=== PATIENT | male | born 1965 | race Caucasian/White ===

== ENCOUNTER → 2020-02-21 10:00 | Outpatient (BNVA) | payer MEDICARE, SELFPAY | PROVIDERS: Family Provider Family Medicine; PCP Family Medicine | DX: D89.813 Graft-versus-host disease, unspecified (principal) | CPT/HCPCS: 80053; 83615; 85025; 87496 ==

== ENCOUNTER → 2020-05-16 09:17 | Outpatient (BNVA) | payer MEDICARE, SELFPAY | PROVIDERS: Family Provider Family Medicine; PCP Family Medicine; Visit Provider Nurse Practitioner Family | DX: C92.01 Acute myeloblastic leukemia, in remission (principal); R50.9 Fever, unspecified | CPT/HCPCS: 85025; 87635 ==

== ENCOUNTER 2020-05-17 13:19 | Emergency (ER) | payer MEDICARE, SELFPAY ==
[2020-05-17 13:24] VITALS: BP 116/63; PULSE 93; RESP 12; TEMP 36.9; O2SAT 97; BMI 25.0
--- NOTE | 2020-05-17 13:47 | XRR_ITS ---
PROCEDURE INFORMATION: Exam: XR Chest, 1 View Exam date and time: 05/17/2020 2:03 PM Age: 54 years old Clinical indication: Dyspnea; Patient HX: Covid precautions TECHNIQUE: Imaging protocol: XR of the chest Views: 1 view. COMPARISON: CR Chest 2 views* [id number] 04/15/2016 10:04 PM FINDINGS: Lungs: Unremarkable. No consolidation. Pleural space: Unremarkable. No pleural effusion. No pneumothorax. Heart/Mediastinum: Unremarkable. No cardiomegaly. Bones/joints: No acute findings. XR/XR chest 1V portable [id number] IMPRESSION: No acute findings.
[2020-05-17 13:51] VITALS: O2SAT 97
[2020-05-17 14:02] LABS: Basophils % 0.4 %; Hematocrit 42.9 % (42.0-52.0); Hemoglobin 14.2 g/dL (11.7-16.6); Lymphocytes # 0.7 10^3/uL (0.8-4.8); Lymphocytes % 13.2 %; Mean Corpuscular HGB Conc 33.1 g/dL (30.0-36.0); Mean Corpuscular Hemoglobin 31.2 pg (28.0-34.0); Mean Corpuscular Volume 94.3 fL (80-94); Mean Platelet Volume 10.8 fL (7.4-10.4); Monocytes # 0.7 10^3/uL (0.2-0.9); Monocytes % 13.4 %; Neutrophils # 3.53 10^3/uL (1.8-7.7); Neutrophils % 67.3 %; Nucleated Red Blood Cells % 0 %; Platelet Count 119 10^3/cmm (130-400); Red Blood Count 4.55 10^6/uL (4.1-5.3); Red Cell Distribution Width 14.3 % (12.1-15.1); White Blood Count 5.2 10^3/uL (4.0-10.0)
[2020-05-17 14:23] LABS: Fibrinogen 618 mg/dL (174-498)
--- NOTE | 2020-05-17 14:24 | W.ED.FEVER ---
HPI - Fever General: Chief Complaint: Fever Stated Complaint: FEVER/NOT FEELING GOOD Time Seen by Provider: 05/17/20 13:33 History of Present Illness: HPI Narrative: 54-year-old male comes in complaining of a fever is temps most part of been around 100 bit today he had a temp of 102.2. Started 2 to 3 days ago he was seen by his primary care doctor yesterday and check for Kovic. 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 He denies cough or dyspnea but he has had myalgias and headache. No coronary artery disease. He is in no nausea vomiting or diarrhea no dysuria urgency or frequency no abdominal pain. Has not been any chest pain at all. He denies any hematemesis melena or coffee-ground emesis or hematochezia. 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 elicited complaint: fever Pertinent past history: immunosuppression (Immunosuppressants due to previous bone marrow transplant) Onset (ago): day(s) Measured temperature: 102.2 F Context: on immunosuppressant(s) Exacerbating factors: nothing Relieving factors: acetaminophen and ibuprofen Associated symptoms: Reports chills and myalgias; Deny abdominal pain, flank pain, chest pain, confusion, cough, diarrhea, dysuria, extremity pain, headache(s), nasal congestion, nausea, night sweats, rash, rhinorrhea, short of breath, sinus pain, stiffness, sore throat or vomiting Treatments prior to arrival fever: none Review of Systems Const: Reports: chills; Denies: night sweats ENMT: Denies: nasal congestion or sinus pain Card: Denies: chest pain Resp: Denies: dyspnea, productive cough or non-productive cough GI: Denies: abdominal pain, nausea, vomiting or diarrhea : Denies: flank pain or dysuria Musc: Denies: extremity pain Skin/Breast: Denies: rash or pruritus Neuro: Denies: headache(s) or confusion [facility] ED PFSH: Medical History (Updated 05/18/20 @ 11:43 by Yaya Maldonado MD) Fever Leukemia Surgical History Bone marrow transplant status Social History Smoking and tobacco status: current every day smoker cigarettes Packs smoked per day: 0.5 Years cigarettes smoked: 35 Alcohol intake: current Alcohol intake frequency: holidays/special occasions only Lives independently: Yes Household members: none Marital status: Current occupational status: disabled History of recent travel: No Current gender identity: Male Physical Exam Const: COMMON NORMALS: no acute distress GENERAL APPEARANCE: cooperative and comfortable ORIENTATION/CONSCIOUSNESS: Yes awake, Yes oriented to person, Yes oriented to place and Yes oriented to time HENMT: COMMON NORMALS: normocephalic, atraumatic and hearing grossly normal bilaterally HEAD & SCALP: normocephalic and atraumatic Eye: COMMON NORMALS: Equal, round and reactive pupils present, EOMs intact bilaterally, conjunctivae normal and no scleral icterus CONJUNCTIVA: Yes conjunctivae normal PUPIL: Yes Equal, round and reactive pupils present Neck/C-Spine: COMMON NORMALS: full ROM, no lymphadenopathy, supple and no JVD Lymph: LYMPHATIC: no lymphadenopathy noted and no lymphedema noted Resp: COMMON NORMALS: normal respiratory effort, No retractions, No use of accessory muscles and clear to auscultation bilaterally AUSCULTATION: clear to auscultation bilaterally Cardio: COMMON NORMALS: no JVD, regular rate, regular rhythm and No murmurs present (Cardio) RATE: regular rate RHYTHM: regular rhythm GI: COMMON NORMALS: Soft to palpation and No hepatosplenomegaly present AUSCULTATION: Yes normoactive bowel sounds PALPATION: Yes Soft to palpation, No Tenderness to palpation present (GI), No Guarding due to palpation present (GI) and Yes No hepatosplenomegaly present Extremity: COMMON NORMALS: normal to inspection, capillary refill normal, no clubbing, cyanosis or edema, no calf tenderness and no pedal edema Neuro: SENSORIUM/ORIENTATION: Yes oriented to person, Yes oriented to place and Yes oriented to time Skin: COMMON NORMALS: no rashes or lesions noted GENERAL SKIN EXAM: no rashes or lesions noted Course Vital Signs: Vital signs: Vital Signs Temperature 98.5 F 05/17/20 13:24 Pulse Rate 71 05/17/20 16:45 Respiratory Rate 12 05/17/20 13:24 Blood Pressure 117/81 05/17/20 16:45 Pulse Oximetry 97 08/12/20 16:45 MDM - Fever MDM Narrative: Medical decision making narrative: Reviewed results with patient I strongly suspect he does have COVID his test is pending. We will go ahead and discharge him home strongly recommend that he remain in self quarantine until results are back additionally if he is worsening or change symptoms return all of his family who lives with him in his home should also consider themselves Kovic positive. Lab Data: Attestation: I reviewed the patient's lab results. Labs: Lab Results 05/17/20 05/17/20 05/17/20 Range/Units 13:50 13:50 13:50 WBC 5.2 (4.0-10.0) 10^3/ uL RBC 4.55 (4.1-5.3) 10^6/u L Hgb 14.2 (11.7-16.6) g/dL Hct 42.9 (42.0-52.0) % MCV 94.3 H (80-94) fL MCH 31.2 (28.0-34.0) pg MCHC 33.1 (30.0-36.0) g/dL RDW 14.3 (12.1-15.1) % Plt Count 119 L (130-400) 10^3/c mm MPV 10.8 H (7.4-10.4) fL Neut % (Auto) 67.3 % Lymph % (Auto) 13.2 % [place] % (Auto) 13.4 % Eos % (Auto) 0.0 % Baso % (Auto) 0.4 % Neut # (Auto) 3.53 (1.8-7.7) 10^3/u L Lymph # (Auto) 0.7 L (0.8-4.8) 10^3/u L [place] # (Auto) 0.7 (0.2-0.9) 10^3/u L Eos # (Auto) 0.0 (0.0-0.8) 10^3/u L Baso # (Auto) 0.0 (0.0-0.1) 10^3/u L Nucleated RBC % (a uto) 0 % Nucleated RBCs # 0.0 /100WBC Fibrinogen 618 H (174-498) mg/dL D-Dimer 2.54 H (0-0.59) ug/mIFE U Specimen Type Sample Site ABG pH (7.35-7.45) ABG pCO2 (35-45) mmHg ABG pO2 (80.0-100.0) mmH g ABG HCO3 (22-26) mmol/L ABG Base Excess (-2.0-2.0) mmol/ L Edgard Test Hematocrit (42-52) % O2 Delivery Device FiO2 % Automotive Airconditioning Mechanic ID Sodium 131 L (136-145) mmol/L Potassium 4.2 (3.5-5.1) mmol/L Chloride 99 (98-107) mmol/L Carbon Dioxide 21 L (22-29) mmol/L Anion Gap 15.2 (5-19) BUN 10 (6-20) mg/dL Creatinine 0.9 (0.7-1.2) mg/dL GFR Calculation 88.6 L (90-130) mL/min Glucose 122 H (65-115) mg/dL Calculated Osmolal ity 269 L (285-295) mOsm/k g Lactic Acid (0.5-2.2) mmol/L Calcium 8.9 (8.5-10.5) mg/dL Magnesium 2.1 (1.7-2.3) mg/dL Total Bilirubin 1.1 (0.15-1.2) mg/dL AST 66 H (0-40) U/L ALT 129 H (0-41) U/L Alkaline Phosphata se 77 (40-130) IU/L Lactate Dehydrogen ase 238 H (135-225) U/L Creatine Kinase 28 L (39-308) U/L C-Reactive Protein 72.4 H (0.0-4.9) mg/L NT-Pro-B Natriuret Pep 49 (0-125) pg/mL Total Protein 7.0 (6.6-8.7) g/dL Albumin 4.1 (3.5-5.2) g/dL Globulin 2.9 (1.3-4.6) g/dL Procalcitonin 0.53 H (0-0.5) ng/mL Influenza Type A A g (Negative) Influenza Type B A g (Negative) 05/17/20 05/17/20 05/17/20 Range/Units 13:50 15:02 15:02 WBC (4.0-10.0) 10^3/ uL RBC (4.1-5.3) 10^6/u L Hgb (11.7-16.6) g/dL Hct (42.0-52.0) % MCV (80-94) fL MCH (28.0-34.0) pg MCHC (30.0-36.0) g/dL RDW (12.1-15.1) % Plt Count (130-400) 10^3/c mm MPV (7.4-10.4) fL Neut % (Auto) % Lymph % (Auto) % [place] % (Auto) % Eos % (Auto) % Baso % (Auto) % Neut # (Auto) (1.8-7.7) 10^3/u L Lymph # (Auto) (0.8-4.8) 10^3/u L [place] # (Auto) (0.2-0.9) 10^3/u L Eos # (Auto) (0.0-0.8) 10^3/u L Baso # (Auto) (0.0-0.1) 10^3/u L Nucleated RBC % (a uto) % Nucleated RBCs # /100WBC Fibrinogen (174-498) mg/dL D-Dimer (0-0.59) ug/mIFE U Specimen Type Arterial Sample Site Radial, right ABG pH 7.43 (7.35-7.45) ABG pCO2 35.8 (35-45) mmHg ABG pO2 66.6 L (80.0-100.0) mmH g ABG HCO3 23.9 (22-26) mmol/L ABG Base Excess 0.0 (-2.0-2.0) mmol/ L Edgard Test Pos Hematocrit 45.5 (42-52) % O2 Delivery Device None FiO2 21.0 % Automotive Airconditioning Mechanic ID Ed Sodium (136-145) mmol/L Potassium (3.5-5.1) mmol/L Chloride (98-107) mmol/L Carbon Dioxide (22-29) mmol/L Anion Gap (5-19) BUN (6-20) mg/dL Creatinine (0.7-1.2) mg/dL GFR Calculation (90-130) mL/min Glucose (65-115) mg/dL Calculated Osmolal ity (285-295) mOsm/k g Lactic Acid 1.1 (0.5-2.2) mmol/L Calcium (8.5-10.5) mg/dL Magnesium (1.7-2.3) mg/dL Total Bilirubin (0.15-1.2) mg/dL AST (0-40) U/L ALT (0-41) U/L Alkaline Phosphata se (40-130) IU/L Lactate Dehydrogen ase (135-225) U/L Creatine Kinase (39-308) U/L C-Reactive Protein (0.0-4.9) mg/L NT-Pro-B Natriuret Pep (0-125) pg/mL Total Protein (6.6-8.7) g/dL Albumin (3.5-5.2) g/dL Globulin (1.3-4.6) g/dL Procalcitonin (0-0.5) ng/mL Influenza Type A A g Negative (Negative) Influenza Type B A g Negative (Negative) Discharge Plan Discharge Patient Disposition: Home Clinical Impression: Suspected COVID-19 virus infection Condition: Stable Prescriptions: No Action mycophenolate mofetil 500 mg tablet 500 mg PO BID RF: 0 cholecalciferol (vitamin D3) 50 mcg (2,000 unit) capsule 50 mcg PO DAILY RF: 0 calcium carbonate [Oyster Shell Calcium 500] 500 mg calcium (1,250 mg) tablet 500 mg PO DAILY RF: 0 sulfamethoxazole-trimethoprim [Bactrim DS] 800-160 mg tablet 1 tab PO .COMPLEX RF: 0 magnesium 200 mg tablet 200 mg PO DAILY RF: 0 acyclovir 400 mg tablet 400 mg PO DAILY RF: 0 oxycodone 5 mg capsule 5 mg PO Q4H PRN (Reason: Pain) RF: 0 penicillin V potassium 250 mg tablet 250 mg PO BID RF: 0 famotidine 20 mg tablet 20 mg PO DAILY PRNRF: 0 albuterol sulfate [Ventolin HFA] 90 mcg/actuation HFA aerosol inhaler 2 puff INHALATION Q6H PRN (Reason: shortness of breath or wheezing) Qty: 8.5 RF: 3 prednisone 20 mg tablet 20 mg PO BID RF: 0 Study Drugs See Rx Instructions .ROUTE .COMPLEX RF: 0 Discharge Orders: Discharge Order (Routine); Ordered 05/17/20 Ordered By: Jc Pendleton Referrals: Henegar,Edward, DO [Primary Care Provider] - Discharge Diet: Usual diet Discharge Activity: Limit activity as instructed Activity Restrictions/Additional Instructions: It is highly suspected that you do have coronavirus. You should remain quarantined until advised by a physician that you may stop quarantining yourself. If your first Covid test comes back negative discussed with your primary care doctor about possibly retesting based on your laboratory test today. The ER staff has called to make arrangements for a telehealth visit with 1 of the floral specialist tomorrow. Return to the ER if you have uncontrollable fevers or worsening difficulty breathing Discharge Date/Time: 05/17/20 16:45 Coding Level of Care Code ED Market Development Trainer for Asif Fwlenny Exam Comprehensive
[2020-05-17 14:26] LABS: D Dimer 2.54 ug/mIFEU (0-0.59)
[2020-05-17 14:32] LABS: Lactic Sepsis W/Reflex 1.1 mmol/L (0.5-2.2)
[2020-05-17 14:39] LABS: Slide Review Slide Review Perform
[2020-05-17 14:45] LABS: NT Pro B Type Natriuretic Pept 49 pg/mL (0-125)
--- NOTE | 2020-05-17 14:57 | CTR_ITS ---
PROCEDURE INFORMATION: Exam: CT Angiography Chest With Contrast Exam date and time: 05/17/2020 2:59 PM Age: 54 years old Clinical indication: Abnormal findings; Abnormal diagnostic tests; Elevated d-dimer; Fever TECHNIQUE: Imaging protocol: Computed tomographic angiography of the chest with intravenous contrast. 3D rendering: MIP and/or 3D reconstructed images were created by the technologist. Radiation optimization: All CT scans at this facility use at least one of these dose optimization techniques: automated exposure control; mA and/or kV adjustment per patient size (includes targeted exams where dose is matched to clinical indication); or iterative reconstruction. Contrast material: OMNI 350; Contrast volume: 95 ml; Contrast route: INTRAVENOUS (IV); COMPARISON: CTA Chest-Pulmonary Emb [id number] 04/16/2016 12:12 AM RADIATION DOSE METRICS: Total DLP (mGy-cm): 626.59 FINDINGS: Pulmonary arteries: No pulmonary emboli. Aorta: No aortic aneurysm. No aortic dissection. Lungs: Minimal left lower lung atelectasis. No consolidation. No masses. Pleural space: No pleural effusion. No pneumothorax. Heart: No cardiomegaly. No pericardial effusion. Lymph nodes: No significant adenopathy. Bones/joints: No acute findings. Soft tissues: Unremarkable. CT/CT angio chest PE protcl [id number] IMPRESSION: No acute findings. Radiation Dose CTDIVOL = (mGy): DLP = 626.59 (mGy-cm)
[2020-05-17 15:06] VITALS: BP 113/83; PULSE 78; O2SAT 96
[2020-05-17 15:06] LABS: Alanine Aminotransferase 129 U/L (0-41); Albumin Level 4.1 g/dL (3.5-5.2); Alkaline Phosphatase 77 IU/L (40-130); Anion Gap 15.2 (5-19); Aspartate Amino Transferase 66 U/L (0-40); Blood Urea Nitrogen 10 mg/dL (6-20); C Reactive Protein 72.4 mg/L (0.0-4.9); Calcium 8.9 mg/dL (8.5-10.5); Carbon Dioxide 21 mmol/L (22-29); Chloride 99 mmol/L (98-107); Creatine Phosphokinase 28 U/L (39-308); Globulin 2.9 g/dL (1.3-4.6); Glomerular Filtration Rate 88.6 mL/min (90-130); Glucose 122 mg/dL (65-115); Lactate Dehydrogenase 238 U/L (135-225); Magnesium 2.1 mg/dL (1.7-2.3); Osmolality Calculated 269 mOsm/kg (285-295); Potassium 4.2 mmol/L (3.5-5.1); Sodium 131 mmol/L (136-145); Total Bilirubin 1.1 mg/dL (0.15-1.2)
[2020-05-17 15:12] LABS: ABG PCO2 35.8 mmHg (35-45); ABG PH Result 7.43 (7.35-7.45); Arterial Blood Gas Hematocrit 45.5 % (42-52); Blood Gas Allen Test Pos; Blood Gas Operator Identificat ED; Blood Gas Sample Site Radial, right; Blood Gas Sample Type Arterial; HCO3 ABG 23.9 mmol/L (22-26); PO2 ABG 66.6 mmHg (80.0-100.0)
[2020-05-17 15:15] LABS: Procalcitonin 0.53 ng/mL (0-0.5)
[2020-05-17 15:34] LABS: Influenza A by IFA Negative (Negative); Influenza B by IFA Negative (Negative)
[2020-05-17 16:45] VITALS: BP 117/81; PULSE 71; O2SAT 97
== END 2020-05-17 16:45 | disposition home or self-care (01) ==
PROVIDERS: Emergency Provider Family Medicine; PCP Family Medicine
DX: R50.9 Fever, unspecified (principal); Z85.6 Personal history of leukemia; F17.210 Nicotine dependence, cigarettes, uncomplicated; Z94.81 Bone marrow transplant status
CPT/HCPCS: 12345; 36415; 36600; 71045; 71275; 80053; 82550; 82803; 83605; 83615; 83735; 83880; 84145; 85025; 85378; 85384; 86140; 87040; 87804; 99282; 99284; Q9967

== ENCOUNTER → 2020-05-19 09:06 | Outpatient (BNVA) | payer MEDICARE, SELFPAY | PROVIDERS: PCP Family Medicine; Visit Provider Nurse Practitioner Family | DX: R50.9 Fever, unspecified (principal) | CPT/HCPCS: 87635 ==

== ENCOUNTER 2020-09-24 00:13 | Emergency (ER) | payer MEDICARE, SELFPAY ==
[2020-09-24] VITALS (9 sets, daily range): BP systolic 109–137; BP diastolic 73–94; PULSE 65–85; RESP 15–18; TEMP 36.6; O2SAT 90–98; BMI 25.7
--- NOTE | 2020-09-24 00:42 | ECG_ITS ---
[facility] Test Date: 2020-09-24 Pat Name: Evans Navarro Department: Room: Gender: Male It Web Development Consultant: : 1965 Requested By: Braden Desai Order Number: [id number] Martinez MD: Leigha Granados M.D. Measurements Intervals [place] Rate: 73 P: 31 MD: 201 QRS: 62 QRSD: 94 T: 57 QT: 354 QTc: 393 Interpretive Statements SINUS RHYTHM PROBABLE INFERIOR MYOCARDIAL INFARCTION , PROBABLY OLD [35 ms Q WAVE IN II/aVF] No previous ECG available for comparison Electronically Signed On 09-25-2020 20:40:07 MEDICAL APPOINTMENT SCHEDULER by Leigha Granados M.D. [id number]
--- NOTE | 2020-09-24 00:42 | XRR_ITS ---
PROCEDURE INFORMATION: Exam: XR Chest, 1 View Exam date and time: 09/24/2020 12:54 AM Age: 55 years old Clinical indication: Chest pain; Additional info: Cp HTN TECHNIQUE: Imaging protocol: XR of the chest Views: 1 view. COMPARISON: CR XR chest 1V portable [id number] 05/17/2020 1:50 PM FINDINGS: Lungs: Lungs are clear. Pleural space: There is no pleural effusion or pneumothorax. Heart/Mediastinum: Cardiomediastinal contours are unremarkable. Bones/joints: Bones are unremarkable. XR/XR chest 1V portable [id number] IMPRESSION: No acute findings.
[2020-09-24 01:09] LABS: INR 0.96 (0.8-1.2); Partial Thromboplastin Time 25.6 SECONDS (23.9-36.7)
[2020-09-24 01:18] LABS: Troponin(5th) Baseline 12 ng/L (0-15)
[2020-09-24 01:27] LABS: Albumin Level 4.1 g/dL (3.5-5.2); Alkaline Phosphatase 44 IU/L (40-130); Blood Urea Nitrogen 10 mg/dL (6-20); Calcium 9.7 mg/dL (8.5-10.5); Carbon Dioxide 24 mmol/L (22-29); Chloride 101 mmol/L (98-107); Creatine Phosphokinase 85 U/L (39-308); Creatinine Clr Calc Pharmacy 108.7946; Globulin 2.6 g/dL (1.3-4.6); Glomerular Filtration Rate 88.3 mL/min (90-130); Glucose 135 mg/dL (65-115); NT Pro B Type Natriuretic Pept 13 pg/mL (0-125); Osmolality Calculated 281 mOsm/kg (285-295); Sodium 135 mmol/L (136-145); Total Bilirubin 0.2 mg/dL (0.15-1.2); Total Protein 6.7 g/dL (6.6-8.7)
[2020-09-24 01:28] LABS: Alanine Aminotransferase 18 U/L (0-41); Anion Gap 14.2 (5-19); Aspartate Amino Transferase 18 U/L (0-40); Potassium 4.2 mmol/L (3.5-5.1)
[2020-09-24 01:31] LABS: Basophils % 0.1 %; Eosinophils % 0.4 %; Hematocrit 46.1 % (42.0-52.0); Hemoglobin 15.1 g/dL (11.7-16.6); Lymphocytes # 1.4 10^3/uL (0.8-4.8); Lymphocytes % 14.1 %; Mean Corpuscular HGB Conc 32.8 g/dL (30.0-36.0); Mean Corpuscular Hemoglobin 30.4 pg (28.0-34.0); Mean Corpuscular Volume 92.8 fL (80-94); Mean Platelet Volume 9.9 fL (7.4-10.4); Monocytes # 0.9 10^3/uL (0.2-0.9); Monocytes % 8.6 %; Neutrophils # 7.66 10^3/uL (1.8-7.7); Neutrophils % 76.3 %; Nucleated Red Blood Cells % 0 %; Platelet Count 305 10^3/cmm (130-400); Red Blood Count 4.97 10^6/uL (4.1-5.3); Red Cell Distribution Width 14.4 % (12.1-15.1)
--- NOTE | 2020-09-24 01:48 | ED_ITS ---
HPI - General Adult General: Chief complaint: General Medical Stated complaint: high blood pressure Time Seen by Provider: 09/24/20 00:41 History of Present Illness: HPI narrative: 55-year-old male with a history of AML presents with neck and head discomfort that radiated into his left shoulder at home. He checked his blood pressure and found it to be well over 200 systolic. This is exceptionally abnormal for him. He took an aspirin at home. He came in for evaluation. Upon evaluation here, his headache and neck pain are improved as well as his shoulder pain. His blood pressure is improving as well. He denies any fever, in fact he checked his temperature earlier today and it read cool, 95.5. He does note some chest congestion the past couple of days. No swelling Onset (ago): hour(s) Location: head, neck, left and upper extremity Severity: moderate Quality: other Pain Consistency: constant Relieving factors: none Exacerbating factors: none Associated symptoms: Reports cough and nausea; Deny chest pain, confusion, diaphoresis, short of breath, syncope, vomiting or weakness Review of Systems Const: Denies: diaphoresis Card: Denies: chest pain or syncope GI: Reports: nausea; Denies: vomiting Neuro: Denies: confusion PFSH ED PFSH: Medical History (Updated 09/24/20 @ 02:46 by Braden Salter DO) Fever Leukemia Surgical History Bone marrow transplant status Social History Smoking and tobacco status: current every day smoker cigarettes Packs smoked per day: 0.5 Years cigarettes smoked: 35 Alcohol intake: current Alcohol intake frequency: holidays/special occasions only Lives independently: Yes Household members: none Marital status: Current occupational status: disabled History of recent travel: No Current gender identity: Male Physical Exam Const: GENERAL APPEARANCE: well developed ORIENTATION/CONSCIOUSNESS: Yes oriented to person, Yes oriented to place and Yes oriented to time HENMT: COMMON NORMALS: normocephalic, external ears normal and Normal external nose present HEAD & SCALP: normocephalic FACE & SINUS: normal facial exam NOSE: Normal external nose present and No nasal discharge present EXTERNAL EAR: Yes external ears normal Eye: COMMON NORMALS: Equal, round and reactive pupils present, EOMs intact bilaterally and conjunctivae normal EYELID: eyelids normal CONJUNCTIVA: Yes conjunctivae normal PUPIL: Yes Equal, round and reactive pupils present Neck/C-Spine: COMMON NORMALS: full ROM GENERAL: No tracheal deviation Chest: COMMONS NORMALS: normal inspection of the chest CHEST: No tenderness Resp: COMMON NORMALS: clear to auscultation bilaterally EFFORT & INSPECTION: No tachypneic, No respiratory distress, No retractions, No uses accessory muscles and No tracheal deviation AUSCULTATION: clear to auscultation bilaterally, no rhonchi, no wheezes and lung sounds not diminished Cardio: COMMON NORMALS: regular rate and regular rhythm RATE: regular rate RHYTHM: regular rhythm HEART SOUNDS: no murmurs PERIPHERAL PULSES: radial pulses present GI: INSPECTION: No abdominal distension AUSCULTATION: No Hyperactive bowel sounds present and No Hypoactive bowel sounds present PALPATION: No Guarding due to palpation present (GI) and No Rigid due to palpation PERCUSSION: no dullness to percussion and no tympanic to percussion Neuro: SENSORIUM/ORIENTATION: Yes oriented to person, Yes oriented to place and Yes oriented to time Psych: COMMON NORMALS: mental status grossly normal Skin: COMMON NORMALS: no rashes or lesions noted GENERAL SKIN EXAM: no rashes or lesions noted Course Vital Signs: Vital signs: Vital Signs Temperature 97.9 F 09/24/20 00:23 Pulse Rate 82 09/24/20 02:00 Respiratory Rate 17 09/24/20 02:00 Blood Pressure 127/92 09/24/20 02:00 Pulse Oximetry 93 09/24/20 02:00 MDM - General Adult MDM Narrative: Medical decision making narrative: 55-year-old male. History AML. No history of coronary disease. Presents with neck and shoulder pain with a high blood pressure at home. His neck is still mildly stiff, head pain is resolved. Shoulder pain is resolved. His blood pressure is currently 109/73. His troponin enzyme is negative. His EKG shows a sinus rhythm with no acute ST changes. There are Q waves present. With self resolution of his pressure, and improvement in his symptoms, he will be allowed home. He does complain of neck stiffness, but moves his neck freely without an increase in pain in room. Lab Data: Labs: Lab Results 09/24/20 09/24/20 09/24/20 Range/Units 00:49 00:49 00:49 WBC 10.0 (4.0-10.0) 10^3/ uL RBC 4.97 (4.1-5.3) 10^6/u L Hgb 15.1 (11.7-16.6) g/dL Hct 46.1 (42.0-52.0) % MCV 92.8 (80-94) fL MCH 30.4 (28.0-34.0) pg MCHC 32.8 (30.0-36.0) g/dL RDW 14.4 (12.1-15.1) % Plt Count 305 (130-400) 10^3/c mm MPV 9.9 (7.4-10.4) fL Neut % (Auto) 76.3 % Lymph % (Auto) 14.1 % [place] % (Auto) 8.6 % Eos % (Auto) 0.4 % Baso % (Auto) 0.1 % Neut # (Auto) 7.66 (1.8-7.7) 10^3/u L Lymph # (Auto) 1.4 (0.8-4.8) 10^3/u L [place] # (Auto) 0.9 (0.2-0.9) 10^3/u L Eos # (Auto) 0.0 (0.0-0.8) 10^3/u L Baso # (Auto) 0.0 (0.0-0.1) 10^3/u L Nucleated RBC % (a uto) 0 % Nucleated RBCs # 0.0 /100WBC PT 13.10 (12.1-14.9) SECO NDS INR 0.96 (0.8-1.2) APTT 25.6 (23.9-36.7) SECO NDS Sodium 135 L (136-145) mmol/L Potassium 4.2 (3.5-5.1) mmol/L Chloride 101 (98-107) mmol/L Carbon Dioxide 24 (22-29) mmol/L Anion Gap 14.2 (5-19) BUN 10 (6-20) mg/dL Creatinine 0.9 (0.7-1.2) mg/dL GFR Calculation 88.3 L (90-130) mL/min Glucose 135 H (65-115) mg/dL Calculated Osmolal ity 281 L (285-295) mOsm/k g Calcium 9.7 (8.5-10.5) mg/dL Total Bilirubin 0.2 (0.15-1.2) mg/dL AST 18 (0-40) U/L ALT 18 (0-41) U/L Alkaline Phosphata se 44 (40-130) IU/L Creatine Kinase 85 (39-308) U/L Troponin T Baselin e (0-15) ng/L C-Reactive Protein (0.0-4.9) mg/L NT-Pro-B Natriuret Pep 13 (0-125) pg/mL Total Protein 6.7 (6.6-8.7) g/dL Albumin 4.1 (3.5-5.2) g/dL Globulin 2.6 (1.3-4.6) g/dL Urine Color (Yellow) Urine Appearance (CLEAR) Urine pH (5-7) Ur Specific Gravit y (1.005-1.030) Urine Protein (Negative) Urine Glucose (UA) (Normal) Urine Ketones (Negative) Urine Blood (Negative) Urine Nitrate (Negative) Urine Bilirubin (Negative) Urine Urobilinogen (Negative) mg/dL Ur Leukocyte Gris ase (Negative) Amorphous Sediment 09/24/20 09/24/20 09/24/20 Range/Units 00:49 00:49 02:20 WBC (4.0-10.0) 10^3/ uL RBC (4.1-5.3) 10^6/u L Hgb (11.7-16.6) g/dL Hct (42.0-52.0) % MCV (80-94) fL MCH (28.0-34.0) pg MCHC (30.0-36.0) g/dL RDW (12.1-15.1) % Plt Count (130-400) 10^3/c mm MPV (7.4-10.4) fL Neut % (Auto) % Lymph % (Auto) % [place] % (Auto) % Eos % (Auto) % Baso % (Auto) % Neut # (Auto) (1.8-7.7) 10^3/u L Lymph # (Auto) (0.8-4.8) 10^3/u L [place] # (Auto) (0.2-0.9) 10^3/u L Eos # (Auto) (0.0-0.8) 10^3/u L Baso # (Auto) (0.0-0.1) 10^3/u L Nucleated RBC % (a uto) % Nucleated RBCs # /100WBC PT (12.1-14.9) SECO NDS INR (0.8-1.2) APTT (23.9-36.7) SECO NDS Sodium (136-145) mmol/L Potassium (3.5-5.1) mmol/L Chloride (98-107) mmol/L Carbon Dioxide (22-29) mmol/L Anion Gap (5-19) BUN (6-20) mg/dL Creatinine (0.7-1.2) mg/dL GFR Calculation (90-130) mL/min Glucose (65-115) mg/dL Calculated Osmolal ity (285-295) mOsm/k g Calcium (8.5-10.5) mg/dL Total Bilirubin (0.15-1.2) mg/dL AST (0-40) U/L ALT (0-41) U/L Alkaline Phosphata se (40-130) IU/L Creatine Kinase (39-308) U/L Troponin T Baselin e 12 (0-15) ng/L C-Reactive Protein 1.0 (0.0-4.9) mg/L NT-Pro-B Natriuret Pep (0-125) pg/mL Total Protein (6.6-8.7) g/dL Albumin (3.5-5.2) g/dL Globulin (1.3-4.6) g/dL Urine Color Yellow (Yellow) Urine Appearance Clear (CLEAR) Urine pH 5 (5-7) Ur Specific Gravit y 1.020 (1.005-1.030) Urine Protein Neg (Negative) Urine Glucose (UA) Norm (Normal) Urine Ketones Negative (Negative) Urine Blood 2+ H (Negative) Urine Nitrate Negative (Negative) Urine Bilirubin Neg (Negative) Urine Urobilinogen Norm (Negative) mg/dL Ur Leukocyte Gris ase Negative (Negative) Amorphous Sediment Not Reportable Discharge Plan Discharge Patient Disposition: Home Clinical Impression: Hypertension Qualifiers: Hypertension type: unspecified Qualified Code(s): I10 - Essential (primary) hypertension Condition: Stable Prescriptions: No Action mycophenolate mofetil 500 mg tablet 500 mg PO BID RF: 0 cholecalciferol (vitamin D3) 50 mcg (2,000 unit) capsule 50 mcg PO DAILY RF: 0 calcium carbonate [Oyster Shell Calcium 500] 500 mg calcium (1,250 mg) tablet 500 mg PO DAILY RF: 0 sulfamethoxazole-trimethoprim [Bactrim DS] 800-160 mg tablet 1 tab PO .COMPLEX RF: 0 magnesium 200 mg tablet 200 mg PO DAILY RF: 0 acyclovir 400 mg tablet 400 mg PO DAILY RF: 0 penicillin V potassium 250 mg tablet 250 mg PO BID RF: 0 famotidine 20 mg tablet 20 mg PO DAILY PRN (Reason: Acid Reflux) RF: 0 albuterol sulfate [ProAir HFA] 90 mcg/actuation HFA aerosol inhaler 1 inh INHALATION QID PRN (Reason: shortness of breath or wheezing) Qty: 18 RF: 3 hydrocodone-acetaminophen 5 mg tablet 1 tab PO Q4H PRN (Reason: Pain) RF: 0 ruxolitinib 10 mg tablet 1 tab PO BID RF: 0 polyvinyl alcohol-povidone RF: 0 Discharge Orders: Discharge ED (Routine); Ordered 09/24/20 Ordered By: Braden Salter Referrals: Gage Figueroa DO [Primary Care Provider] - 4-7 days Discharge Diet: Low Salt Discharge Activity: Increase activity as tolerated Patient Instructions: Hypertension (ED) Activity Restrictions/Additional Instructions: Check your blood pressure twice daily for the next several days. Report numbers to your physician. Return for any return of symptoms including headache, worsening neck pain or stiffness, chest discomfort, significant shortness of breath, other concerning symptoms. Return also for fever greater than 100. Coding Level of Care Code ED Environmental Air Specialist for Tiffanyg Fwd Exam Comprehensive
[2020-09-24 02:38] LABS: Bilirubin Urine Neg (Negative); Blood Urine 2+ (Negative); Glucose Urine UA Norm (Normal); Ketones Urine Negative (Negative); Nitrate Urine Negative (Negative); Protein Urine Neg (Negative); Urine Appearance Clear (CLEAR); Urine Color Yellow (Yellow); Urobilinogen Urine Norm (Negative); pH Urine 5 (5-7)
[2020-09-24 02:39] LABS: Add Urine Microscopic? YES; Leukocyte Esterase Urine Negative (Negative)
[2020-09-24 02:47] LABS: Add Urine Culture? No; Bacteria Urine TRACE /hpf; RBC Urine 0-4 /hpf (0-2); Squamous Epithelial Cell Urine 0-4 /hpf (0-5); WBC Urine 0-4 /hpf (0-5)
== END 2020-09-24 03:10 | disposition home or self-care (01) ==
PROVIDERS: Emergency Provider Emergency Medicine; PCP Family Medicine
DX: I10 Essential (primary) hypertension (principal); Z85.6 Personal history of leukemia; F17.210 Nicotine dependence, cigarettes, uncomplicated; R07.9 Chest pain, unspecified
CPT/HCPCS: 12345; 71045; 80053; 81001; 82550; 83880; 84484; 85025; 85610; 85730; 86140; 93005; 99283; 99284

== ENCOUNTER → 2020-11-02 12:22 | Outpatient (BNVA) | payer MEDICARE, SELFPAY | PROVIDERS: PCP Family Medicine; Visit Provider Dermatology | DX: Z20.822 Contact with and (suspected) exposure to COVID-19 (principal); C92.01 Acute myeloblastic leukemia, in remission; Z94.2 Lung transplant status | CPT/HCPCS: 36415; 80053; 85025; 87635 ==

== ENCOUNTER 2021-03-03 16:47 | Emergency (ER) | payer MEDICARE, SELFPAY ==
[2021-03-03 17:02] VITALS: BP 155/110; PULSE 82; RESP 16; TEMP 36.9; O2SAT 98; BMI 25.9
--- NOTE | 2021-03-03 17:06 | W.ED.LOWEXIN ---
HPI - Extremity Injury (Lower) General: Chief Complaint: Extremity Injury, Lower Stated Complaint: RLE INJURY/HIT BY TROLLING MOTOR Time Seen by Provider: 03/03/21 17:00 History of Present Illness: HPI Narrative: 55-year-old male presents to the emergency room with complaints of hood pain. Patient was mounting a trolling motor on a boat and hit his right mid hood he lost control of it and dropped. Did not have any other injury he immediately got a large hematoma and significant pain. He put some ice on it has gone down some. Presents because continuing to cause discomfort. Occurred about 1 hour prior to arrival. MD complaint: leg injury Onset (ago): hour(s) Type of Injury: blunt Place: home Severity: moderate Relieving factors: immobilization Exacerbating factors: movement Context: direct blow Associated symptoms: Reports swelling; Deny inability to bear weight, numbness or tingling Treatments prior to arrival: cold therapy Review of Systems Const: Denies: fever(s), chills, body aches, change in appetite, fatigue or malaise Card: Denies: chest pain, edema, dyspnea on exertion or orthopnea Resp: Denies: dyspnea, productive cough or non-productive cough GI: Denies: abdominal pain, nausea, vomiting, hematemesis, coffee ground emesis, diarrhea, constipation, bloating, hematochezia or melena : Denies: flank pain, dysuria, urinary frequency or urinary urgency Skin/Breast: Denies: rash or pruritus [facility] ED PFSH: Medical History (Updated 03/03/21 @ 17:42 by Jc Pendleton DO) Fever Leukemia Surgical History Bone marrow transplant status Social History Smoking and tobacco status: current every day smoker cigarettes Packs smoked per day: 0.5 Years cigarettes smoked: 35 Alcohol intake: current Alcohol intake frequency: holidays/special occasions only Lives independently: Yes Household members: none Marital status: Current occupational status: disabled History of recent travel: No Current gender identity: Male Physical Exam Const: COMMON NORMALS: no acute distress GENERAL APPEARANCE: cooperative and comfortable ORIENTATION/CONSCIOUSNESS: Yes awake, Yes oriented to person, Yes oriented to place and Yes oriented to time HENMT: COMMON NORMALS: normocephalic, atraumatic, hearing grossly normal bilaterally, external ears normal, EAC's normal, TM's normal bilaterally, Normal nasal mucous membranes and turbinates present, moist oral mucous membranes and oropharynx normal HEAD & SCALP: normocephalic and atraumatic NOSE: Normal nasal mucous membranes and turbinates present EXTERNAL EAR: Yes external ears normal EXTERNAL AUDITORY CANAL: EAC's normal TYMPANIC MEMBRANE: TM's normal bilaterally Neck/C-Spine: COMMON NORMALS: no JVD Resp: COMMON NORMALS: normal respiratory effort, No retractions, No use of accessory muscles and clear to auscultation bilaterally AUSCULTATION: clear to auscultation bilaterally Cardio: COMMON NORMALS: no JVD, regular rate, regular rhythm and No murmurs present (Cardio) RATE: regular rate RHYTHM: regular rhythm Extremity: NARRATIVE EXTREMITY EXAM: Pain with passive range of motion however pain is not particularly disproportionate to the injury. While he notices discomfort it is not exquisite. Neurovascularly otherwise patient is intact. Neuro: SENSORIUM/ORIENTATION: Yes oriented to person, Yes oriented to place and Yes oriented to time Course Vital Signs: Vital signs: Vital Signs Temperature 98.5 F 03/03/21 17:02 Pulse Rate 82 03/03/21 17:02 Respiratory Rate 16 03/03/21 17:02 Blood Pressure 155/110 03/03/21 17:02 Pulse Oximetry 98 03/03/21 17:02 MDM - Extremity Injury (Lower) MDM Narrative: Medical decision making narrative: No evidence of fracture. Will discharge patient home I doubt that he has a compartment syndrome reviewed with him what to watch for is see if he has severe pain with passive range of motion or severe debilitating pain at rest he needs to return to the emergency room. If he is unsure encouraged him just return to be reevaluated. Apply ice can use Tylenol or Profen as needed. Discharge Plan Discharge Patient Disposition: Home Clinical Impression: Contusion of right tibia Condition: Stable Prescriptions: New diclofenac sodium 75 mg tablet,delayed release (DR/EC) 75 mg PO Q12H PRN (Reason: pain) Qty: 20 RF: 0 No Action mycophenolate mofetil 500 mg tablet 500 mg PO BID RF: 0 cholecalciferol (vitamin D3) 50 mcg (2,000 unit) capsule 50 mcg PO DAILY RF: 0 calcium carbonate [Oyster Shell Calcium 500] 500 mg calcium (1,250 mg) tablet 500 mg PO DAILY RF: 0 sulfamethoxazole-trimethoprim [Bactrim DS] 800-160 mg tablet 1 tab PO .COMPLEX RF: 0 magnesium 200 mg tablet 200 mg PO DAILY RF: 0 acyclovir 400 mg tablet 400 mg PO DAILY RF: 0 penicillin V potassium 250 mg tablet 250 mg PO BID RF: 0 famotidine 20 mg tablet 20 mg PO DAILY PRN (Reason: Acid Reflux) RF: 0 albuterol sulfate [ProAir HFA] 90 mcg/actuation HFA aerosol inhaler 1 inh INHALATION QID PRN (Reason: shortness of breath or wheezing) Qty: 18 RF: 3 hydrocodone-acetaminophen 5 mg tablet 1 tab PO Q4H PRN (Reason: Pain) RF: 0 ruxolitinib 10 mg tablet 1 tab PO BID RF: 0 polyvinyl alcohol-povidone RF: 0 Discharge Orders: Discharge ED (Routine); Ordered 03/03/21 Ordered By: Jc Pendleton Referrals: Gage Figueroa DO [Primary Care Provider] - Discharge Diet: Usual diet Discharge Activity: Increase activity as tolerated Patient Instructions: Opioid Safety Activity Restrictions/Additional Instructions: Ice return if there is marked increase in pain Coding Level of Care Code ED Costume Rental Clerk for Chg Fwd Exam Detailed
--- NOTE | 2021-03-03 17:11 | XRR_ITS ---
PROCEDURE INFORMATION: Exam: XR Right Tibia and Fibula Exam date and time: 03/03/2021 5:12 PM Age: 55 years old Clinical indication: Injury or trauma; Other: Hit leg on trolling motor; Blunt trauma; Lower leg; Right TECHNIQUE: Imaging protocol: XR Right tibia and fibula. Views: 2 views. COMPARISON: No relevant prior studies available. FINDINGS: Bones/joints: Normal. Soft tissues: Normal. XR/XR tibia fibula RT 2V [id number] IMPRESSION: No acute findings.
== END 2021-03-03 17:51 | disposition home or self-care (01) ==
PROVIDERS: Emergency Provider Family Medicine; PCP Family Medicine
DX: S80.11XA Contusion of right lower leg, initial encounter (principal); W22.8XXA Striking against or struck by other objects, initial encounter; Z85.6 Personal history of leukemia; F17.210 Nicotine dependence, cigarettes, uncomplicated
CPT/HCPCS: 73590; 99282

== ENCOUNTER 2021-05-16 09:39 | Outpatient (CLI) | payer MEDICARE, SELFPAY ==
[2021-05-16 09:59] VITALS: BP 128/80; PULSE 85; RESP 14; TEMP 36.9; O2SAT 96
[2021-05-16 10:46] VITALS: BP 124/86; PULSE 75; RESP 14; O2SAT 97
[2021-05-16 11:34] VITALS: BP 123/82; PULSE 70; RESP 16; TEMP 37; O2SAT 97
== END 2021-05-16 09:40 | disposition home or self-care (01) ==
LOC: OPS 09:42
PROVIDERS: PCP Family Medicine; Visit Provider Nurse Practitioner
DX: U07.1 COVID-19 (principal)
CPT/HCPCS: 96365

== ENCOUNTER 2022-01-03 10:12 | Outpatient (CLI) | payer MEDICARE, SELFPAY ==
--- NOTE | 2022-01-03 10:33 | MR_ITS ---
WS: [id number] MRI HEAD WITH CONTRAST WITH ATTENTION TO THE INTERNAL AUDITORY CANALS TECHNIQUE: Sagittal T1, T2 axial, T2 axial flair, axial susceptibility weighted imaging, axial diffus ion weighted images, and coronal T2 images were obtained. Pre and post T1 axial and post T1 coronal i mages. ADC and FSPGR images. Post gadolinium images with attention to the internal auditory canals. A xial fiesta imaging. CLINICAL INFORMATION: VERTIGO COMPARISON: None. FINDINGS: No evidence of restricted diffusion to suggest acute ischemia. Ventricular system and basal cisterns are patent. Minimal periventricular white matter changes. No significant parenchymal volume loss. Nor mal posterior fossa. Normal vascular flow voids at the skull base. No extra-axial fluid collections. No evidence of mass or mass effect. Prominent perivascular space RIGHT basal ganglia. Paranasal sinus es are well aerated. Small amount of fluid in the RIGHT sphenoid sinus. Mastoid air cells well aerate d. Normal visualized posterior nasopharynx. No hemosiderin on susceptibly weighted images. Proximal 7th and 8th cranial nerves are normal in appearance. Normal trigeminal nerve root entry zone s. No evidence of enhancing IAC or CP angle mass. Normal optic chiasm and pituitary infundibulum. Nor mal sella. Cavernous sinuses and Meckel's cave are normal in appearance. No abnormal parenchymal enha ncement. Normal visualized dural venous sinuses. MR/MR iac's wo/w con* [id number] IMPRESSION: 1. No evidence of restricted diffusion to suggest acute ischemia. 2. Proximal 7th and 8th cranial nerves are normal in appearance. No evidence o f enhancing IAC or CP angle mass. 3. Normal trigeminal nerve root entry zones. 4. Normal cavernous sinuses and Meckel's cave. 5. Minimal small vessel changes. No significant parenchymal volume loss. 6. Small amount of fluid in the RIGHT sphenoid sinus. Mastoid air cells well a erated. 7. No other suspicious findings.
== END 2022-01-03 10:13 | disposition home or self-care (01) ==
LOC: RAD 10:22
PROVIDERS: PCP Family Medicine; Visit Provider Nurse Practitioner
DX: R42 Dizziness and giddiness (principal)
CPT/HCPCS: 70553; A9577

== ENCOUNTER → 2022-09-11 14:26 | Outpatient (BNVA) | payer MEDICARE, SELFPAY | PROVIDERS: PCP Family Medicine; Visit Provider Nurse Practitioner Family | DX: R50.9 Fever, unspecified (principal) | CPT/HCPCS: 87400 ==

== ENCOUNTER → 2023-07-31 15:59 | Outpatient (BNVA) | payer MEDICARE, OTHER, SELFPAY | PROVIDERS: PCP Family Medicine; Visit Provider Nurse Practitioner Family | DX: S97.82XA Crushing injury of left foot, initial encounter (principal); X58.XXXA Exposure to other specified factors, initial encounter | CPT/HCPCS: 73630 ==

== ENCOUNTER 2025-06-15 17:44 | Emergency (ER) | payer MEDICARE, OTHER, SELFPAY ==
--- OUTSIDE RECORDS SUMMARY | 2025-06-14 11:40 | XMS_ITS | Encounter Summary ---
Author Organization [facility] Address [address] [place] [address] Care Team Providers Care Urban Renewal Manager Name Role Phone Parag Duff MD Primary Care Provider [phone] Reason for Referral * Eval and Treat (2-4 Days) - Open Specialty Diagnoses / Procedures Referred By Amilcar colmenares Referred To Contact Dermatology Diagnoses Skin lesion of hand Procedures CT OFFICE/OUTPATIENT ESTABLISHED MOD MDM [address] OFFICE/OUTPATIENT NEW MODERATE MDM 45 MINUTES Harper Villalobos FNP [address] [place] [phone] Phone: tel: fax: [facility] [address] [place] [address] Phone: tel: fax: Referral ID Status Reason Start Date Expiration Date Visits Re quested Visits Authorized [id number] Open 06/14/2025 06/14/2026 1 1 Reason for Visit * Reason Comments Ear Pain States that the pain is better Dizziness Continues to be dizz y.Dizzy is worse when he looks up, is lying flat and turns his head and stairs Encounter Details Date Type Department Care Team (Late st Contact Info) Description 06/14/2025 11:40 AM CDT Office Visit [facility] [address] [phone] Harper Villalobos FNP [address] [place] [phone] Acute left otitis media (Primary Dx); Skin lesion of hand; Acute pain of right knee Social History Tobacco Use Types Packs/Day Years Used Date Smoking Tobacco: Every Day Cigarettes 0.5 20 Passive Smoke Exposure: Current Smokeless Tobacco: Never Alcohol Use Standard Drinks/Week Comments Never 0 (1 standard drink = 0.6 oz pur e alcohol) Sex and Gender Information Value Date Recorded Sex Assigned at Male 10/13/2024 3:20 PM STEAM TANK OPERATOR Legal Sex Male 9:51 AM CDT Gender Identity Male 10/13/2024 3:20 PM STEAM TANK OPERATOR Sexual Orientation Straight 10/13/2024 3: 20 PM STEAM TANK OPERATOR documented as of this encounter Last Filed Vital Signs Vital Sign Reading Time Taken Comments Blood Pressure 128/82 06/14/2025 11:52 AM CDT Pulse 76 06/14/2025 11:52 AM CDT Temperature 36.4 C (97.6 F) 06/14/2025 11:52 AM CDT Respiratory Rate 18 06/14/2025 11:52 AM CDT Oxygen Saturation 95% 06/14/2025 11:52 AM CDT Inhaled Oxygen Concentration - - Weight 87.5 kg (193 lb) 06/14/2025 11:52 AM CDT Height 182.9 cm (6') 06/14/2025 11:52 AM CDT Body Mass Index 26.18 06/14/2025 11:52 AM CDT documented in this encounter Plan of Treatment Upcoming Encounters Date Type Department Care Team (Late st Contact Info) Description 09/05/2025 9:00 AM STEAM TANK OPERATOR Office Visit [facility] [address] [phone] Parag Duff MD [address] [place] [phone] Scheduled Referrals Name Type Priority Associated Diagnoses Order Schedule AMB REFERRAL TO DERMATOLOGY Outpatient Referral Routine Skin lesion of hand Ordered: 06/14/2025 documented as of this encounter Visit Diagnoses Diagnosis Acute left otitis media- Primary Unspecified otitis media Skin lesion of hand Unspecified disorder of skin and subcutaneous tissue Acute pain of right knee documented in this encounter Care Teams Urban Renewal Manager Relationship Specialty Start Date End Date Parag Duff MD [address] [address] [place] [phone] PCP - General Family Practice 05/26/24 documented as of this encounter
[2025-06-15 17:51] VITALS: BP 151/92; PULSE 100; RESP 14; TEMP 37; O2SAT 97; BMI 26.2
--- OUTSIDE RECORDS SUMMARY | 2025-06-15 17:51 | XMS_ITS | Patient Health Record ---
Author Organization [facility] Address [address] [place] [address] Support Name Relationship Address Phone Angelique Navarro Emergency Contact [address] [address] Evans Navarro Guarantor Unknown [phone] Reason For Referral No Information Medications Medication SIG (Take, Route, Fr equency, Duration) Notes Start Date End Date Status Cipro 500 MG Tablet 1 tablet Orally Twic e a day; Duration: 7 days 04/14/2016 Active Zofran 4 MG Tablet 1 tablet Orally ever y 6 hours as needed; Duration: 5 days 04/14/2016 Active Social History Social History Additional Details Category Social Info Options Details zzMigrated Social History Migrated Social History Social History(Tobacco Use):yes Type: Quantity/Week: Years of use: ;Social History(Smoking(MU):):Smoki ng Status: Current smoker 1 PPD ;Social History(Alcohol:):no ; Plan Of Treatment Pending Test Test Name Order Date Urinalysis 04/14/2016 Medical (General) History Surgical History Surgery Date(Month/Year) eye surgery
--- OUTSIDE RECORDS SUMMARY | 2025-06-15 17:51 | XMS_ITS | Clinical Summary ---
Author Organization [facility] Address [address] [place] [phone] Care Team Providers Care Forensic Document Examiner Name Role Phone Parag Duff MD Primary Care Provider Allergies Active Allergy Reactions Criticality Noted Date Comments Lisinopril Cough Low 04/24/2023 Methotrexate Anaphylaxis High 05/01/2022 Medications acyclovir (ZOVIRAX) 400 mg tablet Take 400 mg by mouth 3 times daily. Take 1 tablet by mouth three times a day 04/09/20 Active Jakafi 10 mg tablet Take 10 mg by mouth 2 times daily. Take 2 tablets (20 mg) by mouth two times daily 04/29/20 22 Active mycophenolate mofetil (CELLCEPT) 500 mg tablet 500 mg 2 times daily. Take 2 tablets (1,000 mg) by mouth two times daily 04/29/20 22 Active gabapentin (NEURONTIN) 300 mg capsule Take 300 mg by mouth 2 times daily. Take 1 capsule by mouth twice daily 04/29/20 22 Active famotidine (PEPCID) 20 mg tablet Take 20 mg by mouth daily. Take 1 tablet by mouth daily 04/15/20 22 Active cycloSPORINE (RESTASIS) 0.05 % emulsion 1 Drop by Ophthalmic route 2 times daily. 09/07/20 21 Active oxyCODONE (ROXICODONE) 5 mg tablet Take 5 mg by mouth. 10/15/19 22 Active calcium carbonate 500 mg calcium (1,250 mg) tablet Take 1 Tablet by mouth daily. Active cholecalcifero l (vitamin D3) 50 mcg (2,000 unit) capsule Take 2,000 Units by mouth daily. Active MAGNESIUM OXIDE ORAL Take 400 mg by mouth 2 times daily. TAKE 1 TABLET BY MOUTH TWICE DAILY Active predniSONE (DELTASONE) 10 mg tablet Take 5 mg by mouth daily with breakfast. 02/27/20 Active prednisoLONE acetate (PRED FORTE) 1 % suspension Administer 1 Drop in both eyes 2 times daily. 04/28/20 Active losartan (COZAAR) 25 mg tablet Take 12.5 mg by mouth daily at bedtime. 04/24/20 Active risedronate 35 mg Tablet, Delayed Release (E.C.) Take 35 mg by mouth every 7 days. 07/14/20 Active ipratropium/al buterol sulfate (IPRATROPIUM-A LBUTEROL INHALATION) Take by inhalation. Active docusate sodium (COLACE) 100 mg capsule Take 100 mg by mouth 1 time daily as needed. 01/16/20 Active mupirocin (BACTROBAN) 2 % Ointment Apply to affected area 2 times daily. 30 Gram 1 03/18/20 Active Additional Information Patient not taking.Reason: Other (Comments), Reported on 06/14/2025 ezetimibe (ZETIA) 10 mg tabletIndicati ons:Dyslipidem ia Take 1 Tablet (10 mg) by mouth daily. 30 Tablet 11 07/28/20 Active Additional Information Patient not taking.Reason: Other (Comments), Reported on 06/14/2025 albuterol sulfate HFA 90 mcg/actuation aerosol inhaler Take 2 Puffs by inhalation every 6 hours as needed for Shortness of Breath or Wheezing. Active alcohol Pads, Medicated by See Admin Instructions route. 02/11/20 Active blood sugar diagnostic (Blood Glucose Test) Strip 1 Strip by See Admin Instructions route see administration instructions. 02/11/20 Active Blood-Glucose Meter Kit Use to monitor blood glucose levels daily 02/11/20 25 Active lancets Use to check blood sugar daily 02/11/20 25 Active lisinopriL (PRINIVIL) 5 mg tablet Take 5 mg by mouth daily. Active inclisiran (LEQVIO) Syringe Inject 284 mg by subcutaneous injection one time only. Active amoxicillin-cl avulanate (AUGMENTIN) 875-125 mg tabletIndicati ons:Acute left otitis media Take 1 Tablet by mouth every 12 hours for 10 days. 20 Tablet 06/14/20 25 025 Active amoxicillin-cl avulanate (AUGMENTIN) 875-125 mg tabletIndicati ons:Acute left otitis media Take 1 Tablet by mouth every 12 hours for 7 days. 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 2022 Cigarette nicotine dependence without complicati on 12/23/2022 Resolved Problems Problem Noted Date Diagnosed Date Resolved Date Cough 09/13/2023 08/01/2024 COVID-19 virus detected 09/13/202307/07 Wheezing 09/13/2023 08/01/2024 Encounters Date Type Department Care Team Description 06/14/2025 11:40 AM CDT Office Visit [facility] [address] [phone] Harper Villalobos FNP Acute left otitis media (Primary Dx); Skin lesion of hand; Acute pain of right knee 05/24/2025 External Device Data STL ABSTRACTION Provider, Abstract 05/16/2025 4:00 PM CDT Office Visit [facility] [address] [phone] Harper Villalobos FNP Acute left otitis media (Primary Dx); Dyslipidemia 04/20/2025 External Device Data STL ABSTRACTION Provider, Abstract 04/20/2025 External Device Data STL ABSTRACTION Provider, Abstract 04/20/2025 External Device Data STL ABSTRACTION Provider, Abstract 04/05/2025 External Device Data STL ABSTRACTION Provider, Abstract 03/29/2025 External Device Data STL ABSTRACTION Provider, Abstract 03/22/2025 External Device Data STL ABSTRACTION Provider, Abstract from Last 3 Months Immunizations Immunization Administration Dates Next Due (ADACEL/BOOSTRIX)(10 YR UP) TDAP VACCINE, 0.5ML, IM 03/27/2022 (INFANRIX)(6 WKS-6 YRS) DIPT HERIA, TETANUS TOXOIDS, AND ACCELLULAR PERTUSSIS VACCINE (DTAP), 0.5 ML IM 01/25/2022,04/27/2021 (PREVNAR 13)(6 WKS UP) PNEUM OCOCCAL CONJUGATE (PCV13) 0.5 ML, IM 03/27/2022,01/25/2022,04/27/2021 Hepatitis B Vaccine 03/27/2022,01/25/2022,2020 INFLUENZA VACCINE QUADRIVALE NT 6 MOS UP CELL DERIVED PF IM 09/07/2021,07/20/2021,08/25/2020 Influenza Seasonal Unspecifi ed Formulation IM 08/05/2022 Family History Medical History Relation Name Comments Diabetes Father Heart Disease Father Diabetes Mother Heart Disease Mother Relation Name Status Comments Father Alive Mother Alive Social History Tobacco Use Types Packs/Day Years Used Date Smoking Tobacco: Every Day Cigarettes 0.5 20 Passive Smoke Exposure: Current Smokeless Tobacco: Never Tobacco Cessation:Ready to Q uit: Not Asked; Counseling Given: Not Answered Alcohol Use Standard Drinks/Week Comments Never 0 (1 standard drink = 0.6 oz pur e alcohol) Sex and Gender Information Value Date Recorded Sex Assigned at Male 10/13/2024 3:20 PM DEPUTY PROBATION OFFICER Legal Sex Male 9:51 AM CDT Gender Identity Male 10/13/2024 3:20 PM DEPUTY PROBATION OFFICER Sexual Orientation Straight 10/13/2024 3: 20 PM DEPUTY PROBATION OFFICER Last Filed Vital Signs Vital Sign Reading [...] Mass Index 26.18 06/14/2025 11:52 AM CDT Plan of Treatment Upcoming Encounters Date Type Department Care Team (Late st Contact Info) Description 09/05/2025 9:00 AM DEPUTY PROBATION OFFICER Office Visit [facility] [address] [phone] Parag Duff MD [address] [place] [phone] Health Maintenance Due Date Last Done Comments FIT/ DNA Q 3 YEARS (AUTO ORDER) 1985 FLEX SIG/CT COLONOGRAPHY Q 5 YEARS (AUTO ORDER) 1985 HEPATITIS B VACCINES (1 of 3 - 19+ 3-dose series) 1986 03/27/2022, 01/25/2022, 04/27/2021 ZOSTER VACCINE (1 of 2) 1986 FIT-DNA Q 3 years 2012 Flex Sig/CT Colonography Q 5 years 2012 COVID-19 Vaccine (3 - Modern a risk series) 01/23/2021 12/26/2020, 11/28/2020 FIT/FOBT Q 1 YEAR (AUTO ORDER) 12/31/2023 0 12/30/2022, 12/30/2022, 12/30/2022 FIT/FOBT Q 1 year 12/31/2023 12/30/2022 Traditional Medicare (ACO) A nnual Wellness Visit 03/19/2025 03/18/2024, 02/03/2023 INFLUENZA VACCINE (#1) 2025 , 08/04/2023, 08/05/2022, Additional history exists Pre-Diabetes and Diabetes Screening 10/19/2027 10/19/2024, 03/08/2024, 07/24/2023 COLORECTAL CANCER SCREENING (AUTO ORDER) 06/14/2031 06/14/2021 COLORECTAL SCREENING 06/14/2031 06/14/2021 Colorectal Cancer Screening (AUTO ORDER) 06/14/2031 Colorectal Cancer Screening 06/14/2031 DTAP/TDAP/TD VACCINES (4 - T d or Tdap) 03/27/2032 03/27/2022, 01/25/2022, 04/27/2021 Procedures Procedure Name Priority Date/Time Associated Diagnosis Comments HEMOGLOBIN A1C Routine 10/19/2024 4:52 PM DEPUTY PROBATION OFFICER Prediabetes OCCULT BLOOD IMMUNOASSAY, COLORECTAL SCREEN Routine 12/30/2022 12:00 AM CDT Encounter for colorectal cancer screening from Last 3 Months or Most Recently Relevant to Health Maintenance Results * (ABNORMAL) HEMOGLOBIN A1C (10/19/2024 4:52 PM DEPUTY PROBATION OFFICER) HEMOGLOBIN A1C 6.0(H) <5.7 % of total Hgb [facility] Comment: For someone without known diabetes, a hemoglobin A1c value between 5.7% and 6.4% is consistent with prediabetes and should be confirmed with a follow-up test. For someone with known diabetes, a value <7% indicates that their diabetes is well controlled. A1c targets should be individualized based on duration of diabetes, age, comorbid conditions, and other considerations. This assay result is consistent with an increased risk of diabetes. Currently, no consensus exists regarding use of hemoglobin A1c for diagnosis of diabetes for children. ESTIMATED AVERAGE GLUCOSE (MG/DL) 126 mg/dL [facility] ESTIMATED AVERAGE GLUCOSE (MMOL/L) 7.0 mmol/L [facility] Comment: Test Performed at: [facility] [id number] [address] [phone] Jatinder Cerda MD Blood 10/19/2024 4:52 PM DEPUTY PROBATION OFFICER 10/20/2024 2:41 AM DEPUTY PROBATION OFFICER Parag Duff MD CHEMISTRY ORDERABLES Final Resul t [facility] [phone] [facility] [id number] [address] [phone] * OCCULT BLOOD IMMUNOASSAY, COLORECTAL SCREEN (12/30/2022 12:00 AM CDT) FECAL GLOBIN SEE NOTE [facility] Comment: FECAL GLOBIN BY IMMUNOCHEMISTRY Micro Number: [id number] Test Status: Final Specimen Source: Stool Specimen Quality: Adequate Fecal Globin: Not Detected Test Performed at: [facility] [id number] [address] [id number] Jatinder Cerda MD Stool STOOL SPECIMEN / Unknown 12/30/2022 01/02/2023 1:55 PM CDT Aracelis Tavares BATTER MIXER HELPER BODY FLUIDS AND STOOLS Fin al Result [facility] [phone] [facility] [address] [address] [phone] from Last 3 Months or Most Recently Relevant to Health Maintenance [place] [place] [id number] MEDICARE PART A AND B [facility] Care Teams Forensic Document Examiner Relationship Specialty Start Date End Date Parag Duff MD [address] [place] [phone] PCP - General Family Practice 05/26/24
--- OUTSIDE RECORDS SUMMARY | 2025-06-15 17:51 | XMS_ITS | Patient Health Record ---
Author Organization [employer] [facility] Address [address] [facility] [address] [place] [address] Care Team Providers Care Tent Finisher Name Role Phone Chantelle Madsen Unavailable [phone] Allergies Allergen (clinical drug ingredient) Drug/Non Drug Allergy documented on EMR Reaction Allergy Type Onset Date Status methotrexate Methotrexate Unknown Drug Allergy A ctive Reason For Referral No Information Medications Medication SIG (Take, Route, Frequency, Duration) Notes Start Date End Date Status carBAMazepine ER 100 MG Oral; Duration: 30 Days Not-Taking Acyclovir 400 MG Oral; Duration: 30 Days Active Albuterol Sulfate HFA 108 (90 Base) MCG/ACT Inhalation; Duration: 30 Days Active Rosuvastatin Calcium 40 MG Oral; Duratio n: 90 Days Active Sulfamethoxazole-Trimethop rim 800-160 MG Oral; Duration: 30 Days Active Vitamin D-3 04/30/2022 Active predniSONE 20 MG Oral; Duration: 30 Days Active Famotidine 20 MG Oral; Duration: 30 Days Active Lisinopril 5 MG Oral; Duration: 30 Days Active Diclofenac 04/30/2022 Active Jakafi 10 MG Oral; Duration: 30 Days Active Gabapentin 300 MG Oral; Duration: 15 Days Active Mycophenolate Mofetil 500 MG Oral; Duration: 30 Days Active Penicillin V Potassium 250 MG Oral; Duration: 15 Days Active Restasis 0.05 % Ophthalmic; Duration : 30 Days Active oxyCODONE HCl 5 MG Oral; Duration: 7 Days Active Calcium Carbonate 04/30/2022 A ctive Aspirin 81 04/30/2022 Active Social History Sex Assigned At : Social History Observation Description Sex Assigned At Male Plan Of Treatment No Information Insurance Providers Payer Name Payer Address Payer Phone Subscriber Number Group Number Insured Name Patient Relationship to Insured Coverage Start Date Coverage End Date [place] Medicare-J 5 [id number] [facility] [address] [place], [place] [id number] BrynnEvans brewer Self - patient is the insured AARP Medicare Supp Plan G/F [address] [place] [address] [id number] Evans Navraro Self - patient is the insured Medical (General) History Medical History History ICD Code 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
--- OUTSIDE RECORDS SUMMARY | 2025-06-15 17:51 | XMS_ITS | Encounter Summary ---
Author Organization [facility] Address [address] [place] [address] Care Team Providers Care Java Programming Professor Name Role Phone Parag Duff MD Primary Care Provider [phone] Encounter Details Date Type Department Care Team (Late Contact Info) Description 09/13/2023 Lab Requisition [facility] Laboratory Services [address] [place] [address] Carey White, COLLET DRILLER [address] [place] [address] COVID-19 Social History Tobacco Use Types Packs/Day Years Used Date Smoking Tobacco: Every Day Cigarettes 1 20 Smokeless Tobacco: Never Alcohol Use Standard Drinks/Week Comments Never 0 (1 standard drink = 0.6 oz pur e alcohol) Sex and Gender Information Value Date Recorded Sex Assigned at Male 10/13/2024 3:20 PM NURSES' REGISTRY DIRECTOR Legal Sex Male 9:51 AM CDT Gender Identity Male 10/13/2024 3:20 PM NURSES' REGISTRY DIRECTOR Sexual Orientation Straight 10/13/2024 3: 20 PM NURSES' REGISTRY DIRECTOR documented as of this encounter Plan of Treatment Upcoming Encounters Date Type Department Care Team (Late st Contact Info) Description 09/05/2025 9:00 AM NURSES' REGISTRY DIRECTOR Office Visit [facility] [place] [id number] [address] Parag Duff MD [address] [place] [phone] documented as of this encounter Procedures Procedure Name Priority Date/Time Associated Diagnosis Comments EXTRA TUBE (GREEN) Routine 09/13/2023 2: 33 PM NURSES' REGISTRY DIRECTOR COVID-19 CBC WITH DIFFERENTIAL Stat 09/13/2023 2:33 PM NURSES' REGISTRY DIRECTOR COVID-19 C-REACTIVE PROTEIN Stat 09/13/2023 2: 33 PM NURSES' REGISTRY DIRECTOR COVID-19 COMPREHENSIVE METABOLIC PANEL Stat 09/13/2023 2:33 PM NURSES' REGISTRY DIRECTOR COVID-19 documented in this encounter Results * EXTRA TUBE (GREEN) (09/13/2023 2:33 PM NURSES' REGISTRY DIRECTOR) Blood Collection / Unknown 09/13/2023 2:33 PM NURSES' REGISTRY DIRECTOR 09/13/2023 3:45 PM NURSES' REGISTRY DIRECTOR Carey White [facility] CHEMISTRY ORDERABLES Final Result Performing Organization Address City/[facility] Co de Phone Number [facility] CLIA # [id number] [address] [address] [place] [address] * C-REACTIVE PROTEIN (09/13/2023 2:33 PM NURSES' REGISTRY DIRECTOR) Pathologist [facility] CRP <3.0 0.0 - 5.0 mg/L 09/13/2023 4:17 PM NURSES' REGISTRY DIRECTOR [facility] Blood Collection / Unknown 09/13/2023 2:33 PM NURSES' REGISTRY DIRECTOR 09/13/2023 3:45 PM NURSES' REGISTRY DIRECTOR Carey White [facility] CHEMISTRY ORDERABLES Final Result Performing Organization Address City/[facility]/ZIP Co de Phone Number [facility] CLIA # [id number] [id number] [place] [address] * (ABNORMAL) COMPREHENSIVE METABOLIC PANEL (09/13/2023 2:33 PM NURSES' REGISTRY DIRECTOR) SODIUM 142 136 - 145 mmol/L 09/13/2023 4:17 PM NURSES' REGISTRY DIRECTOR [facility] POTASSIUM 4.5 3.5 - 5.1 mmol/L 09/13/2023 4:17 PM [facility] CHLORIDE 106 98 - 107 mmol/L 09/13/2023 4:17 PM [facility] CO2 28 22 - 29 mmol/L 09/13/2023 4:17 PM [facility] CALCIUM 9.7 8.6 - 10.0 mg/dL 09/13/2023 4:17 PM [facility] BUN 10 6 - 20 mg/dL 09/13/2023 4:17 PM [facility] CREATININE 1.00 0.67 - 1.17 mg/dL 09/13/2023 4:17 PM [facility] GLUCOSE 93 74 - 99 mg/dL 09/13/2023 4:17 PM [facility] TOTAL PROTEIN 7.0 6.4 - 8.3 g/dL 09/13/2023 4:17 PM [facility] ALBUMIN 4.5 3.5 - 5.2 g/dL 09/13/2023 4:17 PM [facility] BILIRUBIN TOTAL 0.4 0.2 - 1.0 mg/dL 09/13/2023 4:17 PM [facility] ALKALINE PHOSPHATASE 67 40 - 129 U/L 09/13/2023 4:17 PM [facility] AST 24 10 - 50 U/L 09/13/2023 4:17 PM [facility] ALT 30 <=50 U/L 09/13/2023 4:17 PM [facility] GFR >60 >=60 mL/min/1.7 3 sq meter 09/13/2023 4:17 PM [facility] Comment:eGFR calculated with 2020 CKD-EPI equation. Vegetarian diet, extremely high or low muscle mass, and may affect results. Cystatin C with Glomerular Filtration Rate is a suitable alternative for these patients. ANION GAP 8(L) 9 - 20 mmol/L 09/13/2023 4:17 PM [facility] Blood Collection / Unknown 09/13/2023 2:33 PM NURSES' REGISTRY DIRECTOR 09/13/2023 3:45 PM NURSES' REGISTRY DIRECTOR Carey SANCHEZP CHEMISTRY ORDERABLES Final Result [facility] CLIA # [id number] [address] [address] [place] [address] * (ABNORMAL) CBC WITH DIFFERENTIAL (09/13/2023 2:33 PM NURSES' REGISTRY DIRECTOR) [facility] WBC 6.5 4.8 - 10.8 K/uL 09/13/2023 3:51 PM [facility] RBC 4.96 4.60 - 6.20 M/uL 09/13/2023 3:51 PM [facility] HEMOGLOBIN 14.7 14.0 - 18.0 g/dL 09/13/2023 3:51 PM [facility] HEMATOCRIT 45.7 41.0 - 53.0 % 09/13/2023 3:51 PM [facility] MCV 92.1 84.0 - 103.0 fL 09/13/2023 3:51 PM [facility] MCH 29.6 27.0 - 34.0 pg 09/13/2023 3:51 PM [facility] MCHC 32.2 30.0 - 35.0 g/dL 09/13/2023 3:51 PM [facility] RDW 14.3 11.0 - 14.5 % 09/13/2023 3:51 PM [facility] RDW-STDEV 48.1 37.0 - 54.0 fL 09/13/2023 3:51 PM [facility] PLATELETS 330 140 - 440 K/uL 09/13/2023 3:51 PM [facility] MPV 9.7 8.9 - 12.8 fL 09/13/2023 3:51 PM [facility] NEUTROPHILS 69 42 - 75 % 09/13/2023 3:51 PM [facility] LYMPHOCYTES 17(L) 24 - 44 % 09/13/2023 3:51 PM [facility] MONOCYTES 13(H) 2 - 10 % 09/13/2023 3:51 PM [facility] EOSINOPHILS 1 0 - 7 % 09/13/2023 3:51 PM [facility] BASOPHILS 0 0 - 1 % 09/13/2023 3:51 PM [facility] IMMATURE GRANULOCYTES 1 0 - 2 % 09/13/2023 3:51 PM [facility] NEUTROPHIL ABSOLUTE 4.49 2.00 - 8.00 K/uL 09/13/2023 3:51 PM [facility] LYMPHOCYTE ABSOLUTE 1.09(L) 1.20 - 4.00 K/uL 09/13/2023 3:51 PM [facility] MONOCYTE ABSOLUTE 0.85(H) 0.10 - 0.60 K/uL 09/13/2023 3:51 PM [facility] EOSINOPHIL ABSOLUTE 0.03 0.00 - 0.70 K/uL 09/13/2023 3:51 PM [facility] BASOPHILS ABSOLUTE 0.02 0.00 - 0.20 K/uL 09/13/2023 3:51 PM [facility] IMMATURE GRANULOCYTES ABSOLUTE 0.04 0.00 - 0.10 K/uL 09/13/2023 3:51 PM [facility] Blood Collection / Unknown 09/13/2023 2:33 PM NURSES' REGISTRY DIRECTOR 09/13/2023 3:45 PM NURSES' REGISTRY DIRECTOR Carey MONROE HEMATOLOGY ORDERABLES Final Result [facility] CLIA # [id number] [facility] [address] [place], [place] [address] documented in this encounter Visit Diagnoses Diagnosis COVID-19 documented in this encounter Care Teams Java Programming Professor Relationship Specialty Start Date End Date Parag Duff MD [address] [phone] PCP - General Family Practice 05/26/24 documented as of this encounter
--- OUTSIDE RECORDS SUMMARY | 2025-06-15 17:51 | XMS_ITS | Encounter Summary ---
Author Organization [facility] Address [address] [place] [address] Care Team Providers Care Press Operator [employer] Name Role Phone Parag Duff MD Primary Care Provider [phone] Encounter Details Date Type Department Care Team (Latest Contact Info) Description 10/21/2024 Results Follow-Up [place] [id number] [phone] Parag Duff MD [address] [place] [phone] HEMOGLOBIN A1C, COMPREHENSIVE METABOLIC PANEL, CBC WITH DIFFERENTIAL, LIPID PANEL Social History Tobacco Use Types Packs/Day Years Used Date Smoking Tobacco: Every Day Cigarettes 0.5 20 Passive Smoke Exposure: Current Smokeless Tobacco: Never Alcohol Use Standard Drinks/Week Comments Never 0 (1 standard drink = 0.6 oz pur e alcohol) Sex and Gender Information Value Date Recorded Sex Assigned at Male 10/13/2024 3:20 PM INDUSTRIAL MAINTENANCE REPAIRER Legal Sex Male 9:51 AM CDT Gender Identity Male 10/13/2024 3:20 PM INDUSTRIAL MAINTENANCE REPAIRER Sexual Orientation Straight 10/13/2024 3: 20 PM INDUSTRIAL MAINTENANCE REPAIRER documented as of this encounter Miscellaneous Notes * Result Encounter Note - Belem Lowe - 10/25/2024 4:17 PM CST Patient reviewed his results via [facility]. STRIAL MAINTENANCE REPAIRER documented in this encounter Plan of Treatment Upcoming Encounters Date Type Department Care Team (Late st Contact Info) Description 09/05/2025 9:00 AM INDUSTRIAL MAINTENANCE REPAIRER Office Visit [facility] [address] [address] Parag Duff MD [address] [place] [phone] documented as of this encounter Visit Diagnoses Not on filedocumented in this encounter Care Teams Press Operator [employer] Products Relationship Specialty Start Date End Date Parag Duff MD [address] [place] [phone] PCP - General Family Practice 05/26/24 documented as of this encounter
--- NOTE | 2025-06-15 18:16 | XRR_ITS ---
PROCEDURE INFORMATION: Exam: XR Right Tibia and Fibula Exam date and time: 06/15/2025 6:19 PM Age: 59 years old Clinical indication: Injury or trauma; Other: Hit with chunk of wood from chainsaw; Blunt trauma; Lower leg; Right; Additional info: Hit with wood TECHNIQUE: Imaging protocol: Radiologic exam of the right tibia and fibula. 834 image(s) are submitted. Views: 2 views. COMPARISON: CR XR tibia fibula RT 2V [id number] 03/08/2021 2:51 PM FINDINGS: Bones/joints: Normal. Soft tissues: Normal. XR/XR tibia fibula RT 2V [id number] IMPRESSION: No acute findings.
--- NOTE | 2025-06-15 18:22 | ED_ITS ---
HPI - Extremity Problem General: Chief complaint: Extremity Injury, Lower Stated complaint: right hood pain from wood saw Time Seen by Provider: 06/15/25 17:58 Source: patient Mode of arrival: ambulatory Limitations: no limitations History of Present Illness: Patient is a 59-year-old male who presents emergency department with right hood pain after being struck by a large chunk of wood. He was cutting tree when the wood got caught in a chainsaw and through the wood at his hood, states it swelled up but after ice the swelling has gone down. States pain is shooting distally and proximally, and he has an abrasion to middle right hood. No active bleeding. States has tried to walk but too painful. No other symptoms or injuries. MD Complaint: extremity pain Onset (ago): hour(s) Pain Consistency: constant Location: right and lower extremity Radiation: proximal and distal Exacerbating factors: weight bearing Associated symptoms: Deny chest pain, fever(s) or rash Related Data Home Medications ?Medication ?Instructions ?Recorded ?Confirmed acyclovir 400 mg tablet 400 mg PO DAILY 05/16/20 calcium carbonate (Oyster Shell 500 mg PO DAILY 07/31/23 Calcium 500) cholecalciferol (vitamin D3) 50 50 mcg PO DAILY 07/31/23 mcg (2,000 unit) capsule magnesium 200 mg tablet 200 mg PO DAILY 05/16/20 mycophenolate mofetil 500 mg tablet 500 mg PO BID 05/0607/31/23 famotidine 20 mg tablet 20 mg PO DAILY PRN Acid Refl ux 05/18/20 07/31/23 hydrocodone-acetaminophen 1 tab PO Q4H PRN Pain 07/31/23 polyvinyl alcohol-povidone 09/24/20 07/31/23 cyclosporine 0.05 % eye drops in a 1 drp ophthalmic (e ye) Q12H 09/11/22 07/31/23 dropperette gabapentin 300 mg capsule 300 mg PO BID 09/11/2207/31 prednisolone 5 mg tablet 5 mg PO DAILY 09/11/2207/31 risedronate 35 mg tablet mg PO 09/11/22 07/31/23 rosuvastatin 40 mg tablet 40 mg PO DAILY 09/11/2207/07 ruxolitinib 10 mg tablet (Jakafi) 10 mg PO BID 2 07/31/23 Previous Rx's ?Medication ?Instructions ?Recorded albuterol sulfate 90 mcg/actuation 1 inh inhalation QI D PRN shortness 05/23/20 aerosol inhaler (ProAir HFA) of breath or wheezing #18 grams Allergies Allergy/AdvReac Type Severity Reaction Status Date / Time methotrexate Allergy ALGY-Anaphy Verified 06/15/25 17:54 laxis lisinopril AdvReac Intermediate COUGH Verified 06/15/25 17:54 Review of Systems General: Reports: 10 or more systems reviewed and unremarkable except in HPI and below Const: Denies: fever(s) or chills Card: Denies: chest pain Resp: Denies: dyspnea or productive cough GI: Denies: abdominal pain, nausea, vomiting or diarrhea : Denies: flank pain Musc: Reports: extremity pain (right hood); Denies: neck pain, back pain, extremity swelling, joint pain, joint swelling, joint redness, joint warmth, limited range of motion or muscle weakness Skin/Breast: Reports: new lesions (abrasion right hood); Denies: rash Neuro: Denies: headache(s), numbness in extremities or weakness in extremities PFSH ED PFSH: Medical History Leukemia Fever Surgical History Bone marrow transplant status Social History Smoking and tobacco/nicotine status: current every day tobacco/nicotine user cigarettes Packs smoked per day: 0.5 Years cigarettes smoked: 35 Alcohol intake: current Alcohol intake frequency: holidays/special occasions only Substance/Drug Use: never Lives independently: Yes Household members: none Marital status: Current occupational status: disabled Do you think of yourself as: Straight/Heterosexual Current gender identity: Male Physical Exam Const: COMMON NORMALS: no acute distress, patient oriented x3, no limitations, healthy appearing, alert and well nourished HENMT: COMMON NORMALS: normocephalic and atraumatic HEAD & SCALP: normocephalic and atraumatic Neck/C-Spine: COMMON NORMALS: full ROM, supple and no meningeal signs Resp: COMMON NORMALS: normal respiratory effort, No use of accessory muscles and clear to auscultation bilaterally AUSCULTATION: clear to auscultation bilaterally Cardio: COMMON NORMALS: regular rate and regular rhythm RATE: regular rate RHYTHM: regular rhythm Extremity: COMMON NORMALS: full ROM, capillary refill normal and no joint enlargement NARRATIVE EXTREMITY EXAM: Tender to palpation right anterior hood, hematoma noted and mild bruising. Pulses palpable distally. Good strength and sensations intact. Neuro: COMMON NORMALS: patient oriented x3, moves all extremities, no focal motor deficits and no sensory deficits noted SENSORIUM/ORIENTATION: Yes alert MENINGEAL SIGNS: Yes no meningeal signs Skin: NARRATIVE SKIN EXAM: Abrasion to right anterior hood Course Vital Signs: Vital signs: Vital Signs Temperature 98.6 F 06/15/25 17:51 Pulse Rate 84 06/15/25 19:51 Respiratory Rate 14 06/15/25 17:51 Blood Pressure 124/80 06/15/25 19:51 Pulse Oximetry 96 06/15/25 19:51 Oxygen Delivery Me thod Room Air 06/15/25 19:14 MDM - Extremity (Nontraumatic) Medical Decision Making Patient presenting after striking his right hood with a piece of wood. Neurova scular exam intact, there was small abrasion noted with small hematoma but otherwise unremarkable exam. X-ray showing no fracture, he endorses improvement of pain after 1 dose of [place]. Will be discharged home, diagnosed with contusion. Lab Data Radiology Impressions Tibia/Fibula X-Ray 06/15/25 18:16 IMPRESSION: No acute findings. All radiology interpretation(s) finalized by discharge Discharge Plan Discharge Patient Disposition: Home Clinical Impression: Contusion of leg, right Qualifiers: Encounter type: initial encounter Qualified Code(s): S80.11XA - Contusion of right lower leg, initial encounter Condition: Stable Prescriptions: No Action mycophenolate mofetil 500 mg tablet 500 mg PO BID cholecalciferol (vitamin D3) 50 mcg (2,000 unit) capsule 50 mcg PO DAILY calcium carbonate [Oyster Shell Calcium 500] 500 mg calcium (1,250 mg) tablet 500 mg PO DAILY magnesium 200 mg tablet 200 mg PO DAILY acyclovir 400 mg tablet 400 mg PO DAILY famotidine 20 mg tablet 20 mg PO DAILY PRN (Reason: Acid Reflux) gabapentin 300 mg capsule 300 mg PO BID risedronate 35 mg tablet PO prednisolone 5 mg tablet 5 mg PO DAILY Jakafi 10 mg tablet 10 mg PO BID rosuvastatin 40 mg tablet 40 mg PO DAILY cyclosporine 0.05 % dropperette 1 drp ophthalmic (eye) Q12H albuterol sulfate [ProAir HFA] 90 mcg/actuation HFA aerosol inhaler 1 inh INHALATION QID PRN (Reason: shortness of breath or wheezing) Qty: 18 3RF hydrocodone-acetaminophen 5 mg tablet 1 tab PO Q4H PRN (Reason: Pain) Rx Instructions: 5-325mg polyvinyl alcohol-povidone Discharge Orders: Discharge ED (Routine); Ordered 06/15/25 Ordered By: Wilton Guadalupe Referrals: Gage Figueroa DO [Primary Care Provider, Family Practice] Patient Instructions: Patient Portal & Ishan Instructions Activity Restrictions/Additional Instructions: Lower Leg Contusion Discharge Discharge Instructions: Right Lower Leg Contusion You have been diagnosed with a bruise (contusion) of your right lower leg. This is an injury to the soft tissues (muscle and skin) that does not involve broken bones. Most contusions heal well with simple care at home. The following instructions will help you recover safely and comfortably. 1. Rest - Limit use of your injured leg as much as possible for the first few days. Avoid activities that cause pain or swelling. Gentle movement is encouraged as pain allows, but do not force the leg to do more than is comfortable.[1] https://www.ahajournals.org/doi/abs/10.1161/CIR.9260436790521758?url_ver=Z39.88- 2003&rfr_id=ginette:rid:crossref.org&rfr_dat=cr_pub%20%200pubmed [2] https://pubmed.ncbi.nlm.nih.gov/2313418 [3] https://pubmed.ncbi.nlm.nih.gov/06530694 2. Ice - Apply a cold pack (such as a bag of ice and water wrapped in a damp cloth) to the injured area for 10?20 minutes at a time, 3?4 times a day for the first 48?[address] ice directly on your skin to avoid frostbite.[1] https://www.ahajournals.org/doi/abs/10.1161/CIR.5072243269907452?url_ver=2002&rfr_id=ginette:rid:crossref.org&rfr_dat=cr_pub%20%200pubmed [4] https://pubmed.ncbi.nlm.nih.gov/16672968 - Cold therapy helps reduce pain and swelling, especially in the first few days after injury.[1] https://www.ahajournals.org/doi/abs/10.1161/CIR.7610580487927007?url_ver=2002&rfr_id=ginette:rid:crossref.org&rfr_dat=cr_pub%20%200pubmed [4] https://pubmed.ncbi.nlm.nih.gov/21836429 3. Compression - You may use an elastic bandage (like an JOSE D wrap) for comfort, but do not wrap it too tightly. If you notice numbness, tingling, increased pain, or color changes in your foot, remove the bandage and seek medical attention.[1] https://www.ahajournals.org/doi/abs/10.1161/CIR.2491125432774588?url_ver=2002&rfr_id=ginette:rid:crossref.org&rfr_dat=cr_pub%20%200pubmed [5] https://pubmed.ncbi.nlm.nih.gov/7612818 [6] https://pubmed.ncbi.nlm.nih.gov/11424156 - Compression has not been shown to speed up recovery or reduce swelling in muscle contusions, but may help with comfort.[5] https://pubmed.ncbi.nlm.nih.gov/4314567 [6] https://pubmed.ncbi.nlm.nih.go v/86161208 4. Elevation - When resting, keep your leg raised above the level of your heart as much as possible. This helps reduce swelling.[2] https://pubmed.ncbi.nlm.nih.gov/0077548 [3] https://pubmed.ncbi.nlm.nih.gov/78352125 5. Pain Control - Ysfi-acz-cesjnxm pain medications such as acetaminophen (Tylenol) or ibuprofen (Advil, Motrin) may be used as directed on the package, unless you have been told not to use them for other health reasons. 6. Activity - Gradually return to normal activities as pain and swelling improve. Most contusions heal within 1?3 weeks, but recovery time can vary.[7] https://pubmed.ncbi.nlm.nih.gov/0480776 - If you experience severe pain, inability to move your foot or toes, or worsening swelling, seek medical attention. 7. Watch for Complications - Rarely, a serious condition called compartment syndrome can develop after a leg injury. Warning signs include increasing pain, numbness, tingling, pale or cool skin, or inability to move your foot or toes. If any of these occur, go to the emergency department immediately.[8] https://www.[facility].org/media/mkbnhqtw/ortho_guidelines.pdf 8. Follow-Up - Routine follow-up is not usually needed for simple contusions unless symptoms worsen or do not improve as expected.[9] https://pubmed.ncbi.nlm.nih .gov/93948204 - If you have other medical conditions (such as blood thinners, diabetes, or poor circulation), or if you notice signs of infection (redness, warmth, pus, fever), contact your healthcare provider. 9. Thromboprophylaxis - Blood clot prevention is not recommended for isolated lower leg contusions unless you have additional risk factors (such as a history of blood clots, major immobility, or other injuries).[10] https://www.ncbi.nlm.nih.gov/pmc/articles/DLU5018874/ Summary Most lower leg contusions heal with rest, ice, elevation, and gradual return to activity. Watch for any signs of complications and seek help if needed. If you have questions or concerns, contact your healthcare provider. References * 2023 [place] [employer] and [place] Guidelines for First Aid https://www.ahajournals.org/doi/abs/10.1161/CIR.3619479208308876?url_ver=Z39.8 &rfr_id=ginette:rid:crossref.org&rfr_dat=cr_pub%20%200pubmed . Jose Zamudiofaith EK, Tristen MJ, Micah K, et al. Circulation. 2023;150(24):i402-l624. doi:10.1161/CIR.2567852118779511. * The Treatment of Acute Soft Tissue Trauma in [facility] Emergency Rooms https://pubmed.ncbi.nlm.nih.gov/4557569 . Brittany F, Virginia H. Scandinavian Journal of Medicine & Science in Sports. 1996;7(3):178-81. doi:10.1111/j.7376-2880.1996.yv97363.x. * National Athletic Trainers' Association Position Statement: Conservative Management and Prevention of Ankle Sprains in Athletes https://pubmed.wv bi.nlm.nih.gov/17858670 . Juan Luis TW, Nuris J, Bhavik N, et al. Journal of Athletic Training. 2013 ;48(4):528-45. doi:10.4085/7114-9821-39.4.02. * Ice Therapy: How Good Is the Evidence? https://pubmed.ncbi.nlm.nih.gov/27227594 . Marco Carrasquillo DC. International Journal of Sports Medicine. 2001;22(5):379-84. doi:10.1055/v-8816-18967. * Immediate External Compression in the Management of an Acute Muscle Injury https://pubmed.ncbi.nlm.nih.gov/0741924 . Campbell O, Azalia B, Cira P, Dean N. Scandinavian Journal of Medicine & Science in Sports. 1997;7(3):182-90. doi:10.1111/j.3576-4502.1996.nm56973.x. * Compression Wrapping for Acute Closed Extremity Joint Injuries: A Systematic Review https://pubmed.ncbi.nlm.nih.gov/83220833 . Moisés Parmar, Juan Francisco LOPEZ, Marine D, Isac E, Tsai E. Journal of Athletic Training. 2020;55(8):789-800. doi:10.4085/9945-0587-6205.20. * Quadriceps Contusions. [place] Update https://pubmed.ncbi.nlm.nih.gov/9290596 . Ty AASHISH, Hanane JH, Noah WJ, Jyoti RA, Bharathi KR. The [place] Journal of Sports Medicine. 1990-Mar;19(3):299-304. doi:10.1177/453658278165036964. * Best Practices In The Management Of Orthopaedic Trauma https://www.facs.org/media/mkbnhqtw/ortho_guidelines.pdf . Nimesh Ngo MD FACS, Jhon Pack MD PhD FACS, Savannah Lopez MD MS [facility] FACS, et al. [place] [employer] (2015). * Adoption of Direct Discharge of Simple Stable Injuries Amongst (Orthopaedic) Trauma Surgeons https://pubmed.ncbi.nlm.nih.gov/15454801 . Hillary TH, Felix BA, Neli DT, et al. Injury. 2020;52(4):774-779. doi:10.1016/j.injury.2020.11.026. * Prevention of VTE in Orthopedic Surgery Patients: Antithrombotic Therapy and Prevention of Thrombosis, 9th Ed: [place] [employer] Chest Physicians Evidence-Based Clinical Practice Guidelines https://www.ncbi.nlm.nih.gov/pmc/articles/FIF3502553/ . Andrew Y, Kade CW, Bing NA, et al. Chest. 2012;141(2 Suppl):y591Q-o328Q. doi:10.1378/chest.112404. Print Language: Indonesian Coding Level of Care Code ED Resource Paraprofessional for Asif Velasquez
[2025-06-15 19:14] VITALS: BP 118/86; PULSE 83; O2SAT 97
[2025-06-15] MEDS: HYDROcodone-acetaminophen 7.5-325 mg Tablet 1 TAB PO (19:14)
[2025-06-15 19:51] VITALS: BP 124/80; PULSE 84; O2SAT 96
== END 2025-06-15 19:52 | disposition home or self-care (01) ==
PROVIDERS: Emergency Provider Physician Assistant; PCP Family Medicine
DX: S80.11XA Contusion of right lower leg, initial encounter (principal); F17.210 Nicotine dependence, cigarettes, uncomplicated; W22.8XXA Striking against or struck by other objects, initial encounter
CPT/HCPCS: 73590; 99283; J9999

== ENCOUNTER 2025-09-16 21:28 | Emergency (ER) | payer MEDICARE, OTHER, SELFPAY ==
[2025-09-16 21:37] VITALS: BP 182/115; PULSE 85; RESP 16; TEMP 36.7; O2SAT 97; BMI 25.0
--- OUTSIDE RECORDS SUMMARY | 2025-09-16 21:51 | XMS_ITS | Encounter Summary ---
Author Organization [facility] Address [address] [place] [address] Care Team Providers Care Bottom Liner Name Role Phone Parag Duff MD Primary Care Provider [phone] Encounter Details Date Type Department Care Team (Latest Contact Info) Description 09/06/2025 Results Follow-Up [address] [address] Parag Duff MD [address] [place] [phone] LIPID PANEL, HEMOGLOBIN A1C, COMPREHENSIVE METABOLIC PANEL Social History Tobacco Use Types Packs/Day Years Used Date Smoking Tobacco: Every Day Cigarettes 0.5 20 Passive Smoke Exposure: Current Smokeless Tobacco: Never Alcohol Use Standard Drinks/Week Comments Never 0 (1 standard drink = 0.6 oz pur e alcohol) Sex and Gender Information Value Date Recorded Sex Assigned at Male 10/13/2024 3:20 PM TOOL MACHINIST Legal Sex Male 9:51 AM CDT Gender Identity Male 10/13/2024 3:20 PM TOOL MACHINIST Sexual Orientation Straight 10/13/2024 3: 20 PM TOOL MACHINIST documented as of this encounter Plan of Treatment Upcoming Encounters Date Type Department Care Team (Late st Contact Info) Description 03/06/2026 9:20 AM CDT Office Visit [place] [address] [address] Harper Villalobos, F[facility] [address] [address] documented as of this encounter Visit Diagnoses Not on filedocumented in this encounter Care Teams Bottom Liner Relationship Specialty Start Date End Date Parag Duff MD [address] [place] [phone] PCP - General Family Practice 05/26/24 documented as of this encounter
--- OUTSIDE RECORDS SUMMARY | 2025-09-16 21:51 | XMS_ITS | Encounter Summary ---
Author Organization [facility] Address [address] [place] [address] Care Team Providers Care Petal Shaper Hand Name Role Phone Parag Duff MD Primary Care Provider [phone] Encounter Details Date Type Department Care Team (Latest Contact Info) Description 10/21/2024 Results Follow-Up [facility] [address] [address] Parag Duff MD [address] [place] [phone] HEMOGLOBIN A1C, COMPREHENSIVE METABOLIC PANEL, CBC [...] Sex Assigned at Male 10/13/2024 3:20 PM MATERIAL CONTROL ANALYST Legal Sex Male 9:51 AM CDT Gender Identity Male 10/13/2024 3:20 PM MATERIAL CONTROL ANALYST Sexual Orientation Straight 10/13/2024 3: 20 PM MATERIAL CONTROL ANALYST documented as of this encounter Miscellaneous Notes * Result Encounter Note - Belem Lowe - 10/25/2024 4:17 PM CST Patient reviewed his results via mysoniya. RIAL CONTROL ANALYST documented in this encounter Plan of Treatment Upcoming Encounters Date Type Department Care Team (Late st Contact Info) Description 03/06/2026 9:20 AM CDT Office Visit [facility] [address] [place] [address] Harper Villalobos, FER [address] [place] [address] documented as of this encounter Visit Diagnoses Not on filedocumented in this encounter Care Teams Petal Shaper Hand Relationship Specialty Start Date End Date Parag Duff MD [address] [place] [address] PCP - General Family Practice 05/26/24 documented as of this encounter
--- OUTSIDE RECORDS SUMMARY | 2025-09-16 21:51 | XMS_ITS | Encounter Summary ---
Author Organization [facility] Address [address] [place] [address] Care Team Providers Care Glove Factory Sewer Name Role Phone Parag Duff MD Primary Care Provider [phone] Encounter Details Date Type Department Care Team (Late Contact Info) Description 09/13/2023 Lab Requisition [facility] [address] [place] [address] Carey White, [facility] [address] [place] [address] COVID-19 Social History Tobacco Use Types Packs/Day Years Used Date Smoking Tobacco: Every Day Cigarettes 1 20 Smokeless Tobacco: Never Alcohol Use Standard Drinks/Week Comments Never 0 (1 standard drink = 0.6 oz pur e alcohol) Sex and Gender Information Value Date Recorded Sex Assigned at Male 10/13/2024 3:20 PM CLAIMS CLERK Legal Sex Male 9:51 AM CDT Gender Identity Male 10/13/2024 3:20 PM CLAIMS CLERK Sexual Orientation Straight 10/13/2024 3: 20 PM CLAIMS CLERK documented as of this encounter Plan of Treatment Upcoming Encounters Date Type Department Care Team (Late st Contact Info) Description 03/06/2026 9:20 AM CDT Office Visit [facility] Medicine [place] [address] [address] Harper Villalobos, FER [address] [address] documented as of this encounter Procedures Procedure Name Priority Date/Time Associated Diagnosis Comments EXTRA TUBE (GREEN) Routine 09/13/2023 2: 33 PM CLAIMS CLERK COVID-19 CBC WITH DIFFERENTIAL Stat 09/13/2023 2:33 PM CLAIMS CLERK COVID-19 C-REACTIVE PROTEIN Stat 09/13/2023 2: 33 PM CLAIMS CLERK COVID-19 COMPREHENSIVE METABOLIC PANEL Stat 09/13/2023 2:33 PM CLAIMS CLERK COVID-19 documented in this encounter Results * EXTRA TUBE (GREEN) (09/13/2023 2:33 PM CLAIMS CLERK) Blood Collection / Unknown 09/13/2023 2:33 PM CLAIMS CLERK 09/13/2023 3:45 PM CLAIMS CLERK Carey White [facility] CHEMISTRY ORDERABLES Final Result Performing Organization Address City/[facility]/ZIP Co de Phone Number [facility] CLIA # [id number] [address] [address] * C-REACTIVE PROTEIN (09/13/2023 2:33 PM CLAIMS CLERK) Pathologist [facility] CRP <3.0 0.0 - 5.0 mg/L 09/13/2023 4:17 PM CLAIMS CLERK [facility] Blood Collection / Unknown 09/13/2023 2:33 PM CLAIMS CLERK 09/13/2023 3:45 PM CLAIMS CLERK Carey White [facility] CHEMISTRY ORDERABLES Final Result [facility] [employer] [facility] CLIA # [id number] [id number] [place] [address] * (ABNORMAL) COMPREHENSIVE METABOLIC PANEL (09/13/2023 2:33 PM CLAIMS CLERK) SODIUM 142 136 - 145 mmol/L 09/13/2023 4:17 PM [facility] POTASSIUM 4.5 3.5 - 5.1 mmol/L 09/13/2023 4:17 PM [facility] CHLORIDE 106 98 - 107 mmol/L 09/13/2023 4:17 PM [facility] CO2 28 22 - 29 mmol/L 09/13/2023 4:17 PM [facility] CALCIUM 9.7 8.6 - 10.0 mg/dL 09/13/2023 4:17 PM [facility] BUN 10 6 - 20 mg/dL 09/13/2023 4:17 PM [facility] CREATININE 1.00 0.67 - 1.17 mg/dL 09/13/2023 4:17 PM [facility] GLUCOSE 93 74 - 99 mg/dL 09/13/2023 4:17 PM [facility] TOTAL PROTEIN 7.0 6.4 - 8.3 g/dL 09/13/2023 4:17 PM [facility] ALBUMIN 4.5 3.5 - 5.2 g/dL 09/13/2023 4:17 PM [facility] BILIRUBIN TOTAL 0.4 0.2 - 1.0 mg/dL 09/13/2023 4:17 PM [facility] ALKALINE PHOSPHATASE 67 40 - 129 U/L 09/13/2023 4:17 PM [facility] AST 24 10 - 50 U/L 09/13/2023 4:17 PM [facility] ALT 30 <=50 U/L 09/13/2023 4:17 PM [facility] GFR >60 >=60 mL/min/1.7 3 sq meter 09/13/2023 4:17 PM [facility] Comment:eGFR calculated with 2020 CKD-EPI equation. Vegetarian diet, extremely high or low muscle mass, and may affect results. Cystatin C with Glomerular Filtration Rate is a suitable alternative for these patients. ANION GAP 8(L) 9 - 20 mmol/L 09/13/2023 4:17 PM [facility] Blood Collection / Unknown 09/13/2023 2:33 PM CLAIMS CLERK 09/13/2023 3:45 PM CLAIMS CLERK Carey SANCHE[facility] CHEMISTRY ORDERABLES Final Result [facility] CLIA # [id number] [address] [place] [address] [place] [address] * (ABNORMAL) CBC WITH DIFFERENTIAL (09/13/2023 2:33 PM CLAIMS CLERK) [facility] WBC 6.5 4.8 - 10.8 K/uL 09/13/2023 3:51 PM [facility] RBC 4.96 4.60 - 6.20 M/uL 09/13/2023 3:51 PM [facility] HEMOGLOBIN 14.7 14.0 - 18.0 g/dL 09/13/2023 3:51 PM [facility] HEMATOCRIT 45.7 41.0 - 53.0 % 09/13/2023 3:51 PM [facility] MCV 92.1 84.0 - 103.0 fL 09/13/2023 3:51 PM [facility] MCH 29.6 27.0 - 34.0 pg 09/13/2023 3:51 PM [facility] MCHC 32.2 30.0 - 35.0 g/dL 09/13/2023 3:51 PM [facility] RDW 14.3 11.0 - 14.5 % 09/13/2023 3:51 PM [facility] RDW-STDEV 48.1 37.0 - 54.0 fL 09/13/2023 3:51 PM [facility] PLATELETS 330 140 - 440 K/uL 09/13/2023 3:51 PM [facility] MPV 9.7 8.9 - 12.8 fL 09/13/2023 3:51 PM [facility] NEUTROPHILS 69 42 - 75 % 09/13/2023 3:51 PM [facility] LYMPHOCYTES 17(L) 24 - 44 % 09/13/2023 3:51 PM [facility] MONOCYTES 13(H) 2 - 10 % 09/13/2023 3:51 PM [facility] EOSINOPHILS 1 0 - 7 % 09/13/2023 3:51 PM [facility] BASOPHILS 0 0 - 1 % 09/13/2023 3:51 PM [facility] IMMATURE GRANULOCYTES 1 0 - 2 % 09/13/2023 3:51 PM [facility] NEUTROPHIL ABSOLUTE 4.49 2.00 - 8.00 K/uL 09/13/2023 3:51 PM [facility] LYMPHOCYTE ABSOLUTE 1.09(L) 1.20 - 4.00 K/uL 09/13/2023 3:51 PM [facility] MONOCYTE ABSOLUTE 0.85(H) 0.10 - 0.60 K/uL 09/13/2023 3:51 PM [facility] EOSINOPHIL ABSOLUTE 0.03 0.00 - 0.70 K/uL 09/13/2023 3:51 PM [facility] BASOPHILS ABSOLUTE 0.02 0.00 - 0.20 K/uL 09/13/2023 3:51 PM [facility] IMMATURE GRANULOCYTES ABSOLUTE 0.04 0.00 - 0.10 K/uL 09/13/2023 3:51 PM [facility] Blood Collection / Unknown 09/13/2023 2:33 PM CLAIMS CLERK 09/13/2023 3:45 PM CLAIMS CLERK Carey White [facility] HEMATOLOGY ORDERABLES Final Result [facility] CLIA # [id number] [address] [address] [place] [address] documented in this encounter Visit Diagnoses Diagnosis COVID-19 documented in this encounter Care Teams Glove Factory Sewer Relationship Specialty Start Date End Date Parag Duff MD [address] [address] [place] Pérez [phone] PCP - General Family Practice 05/26/24 documented as of this encounter
--- OUTSIDE RECORDS SUMMARY | 2025-09-16 21:51 | XMS_ITS | Patient Health Record ---
Author Organization [facility] Address [address] [place] [address] Support Name Relationship Address Phone Angelique Navarro Emergency Contact [address] [facility] [place] Rom[place] [address] [address] Navarro Guarantor Unknown [phone] Reason For Referral No Information Medications Medication [...]
--- OUTSIDE RECORDS SUMMARY | 2025-09-16 21:51 | XMS_ITS | Patient Health Record ---
Author Organization [facility] Address [address] [facility] [address] [place] [address] Care Team Providers Care Document Control Associate Name Role Phone Chantelle Madsen Unavailable [phone] Allergies Allergen (clinical drug ingredient) Drug/Non Drug [...] Coverage End Date [place] Medicare-J 5 1717 [facility] [address] [place], [place] [id number] BrynnEvans brewer Self - patient is the insured AARP Medicare Supp Plan G/F [address] [place] [address] [id number] Evans Navarro Self - patient is the insured Medical (General) History Medical History History ICD Code 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
--- OUTSIDE RECORDS SUMMARY | 2025-09-16 21:51 | XMS_ITS | Clinical Summary ---
Author Organization [facility] National Address [address] [facility] [place] [address] Care Team Providers Care Imaging Aide Name Role Phone Parag Duff MD Primary Care Provider [phone] Allergies Active Allergy Reactions Criticality Noted Date Comments Lisinopril Cough Low 04/24/2023 Methotrexate Anaphylaxis High 05/01/2022 Medications acyclovir (ZOVIRAX) 400 mg tablet Take 400 mg by mouth 3 times daily. Take 1 tablet by mouth three times a day 04/09/20 22 Active Jakafi 10 mg tablet Take 10 [...] 1 capsule by mouth twice daily 04/29/20 Active famotidine (PEPCID) 20 mg tablet Take 20 mg by mouth daily. Take 1 tablet by mouth daily 04/15/20 22 Active calcium carbonate 500 mg calcium (1,250 mg) tablet Take 1 Tablet by mouth daily. Active cholecalciferol (vitamin D3) 50 mcg (2,000 unit) capsule Take 2,000 Units by mouth daily. Active MAGNESIUM OXIDE ORAL Take 400 mg by mouth 2 times daily. TAKE 1 TABLET BY MOUTH TWICE DAILY Active predniSONE (DELTASONE) 10 mg tablet Take 5 mg by mouth daily with breakfast. 02/27/20 23 Active ipratropium/alb uterol sulfate (IPRATROPIUM-AL BUTEROL INHALATION) Take by inhalation. Active docusate sodium (COLACE) 100 mg capsule Take 100 mg by mouth 1 time daily as needed. 01/16/20 24 Active albuterol sulfate HFA 90 mcg/actuation aerosol inhaler Take 2 Puffs by inhalation every 6 hours as needed for Shortness of Breath or Wheezing. Active alcohol Pads, Medicated by See Admin Instructions route. 02/11/20 25 Active blood sugar diagnostic (Blood Glucose Test) Strip 1 Strip by See Admin Instructions route see administration instructions. 02/11/20 Active Blood-Glucose Meter Kit Use to monitor blood glucose levels daily 02/11/20 Active lancets Use to check blood sugar daily 02/11/20 25 Active inclisiran (LEQVIO) Syringe Inject 284 mg by subcutaneous injection one time only. Active losartan (COZAAR) 25 mg tabletIndicatio ns:Primary hypertension Take 0.5 Tablets (12.5 mg) by mouth daily at bedtime. 100 Tablet 3 09/05/20 25 Active fluticasone propionate (FLONASE) 50 mcg/spray [place], Suspension nasal inhalerIndicati ons:Post-nasal drip Administer 2 Sprays in each nostril daily. 16 Gram 2 09/05/20 25 Active cycloSPORINE (RESTASIS) 0.05 % emulsion 1 Drop by Ophthalmic route 2 times daily. 09/07/20 21 025 Discontinu ed(Patient choice) oxyCODONE (ROXICODONE) 5 mg tablet Take 5 mg by mouth. 10/15/19 22 025 Discontinu ed(Patient choice) prednisoLONE acetate (PRED FORTE) 1 % suspension Administer 1 Drop in both eyes 2 times daily. 04/28/20 23 025 Discontinu ed(Patient choice) losartan (COZAAR) 25 mg tablet Take 12.5 mg by mouth daily at bedtime. 04/24/20 23 Discontinu ed(Reorder ) risedronate 35 mg Tablet, Delayed Release (E.C.) Take 35 mg by mouth every 7 days. 07/14/20 23 025 Discontinu ed(Patient choice) mupirocin (BACTROBAN) 2 % Ointment Apply to affected area 2 times daily. 30 Gram 1 03/18/20 24 025 Discontinu ed(Patient choice) lisinopriL (PRINIVIL) 5 mg tablet Take 5 mg by mouth daily. 025 Discontinu ed(Alterna te therapy prescribed ) Active Problems Problem Noted Date Diagnosed Date Primary hypertension 09/05/2025 Prediabetes 03/18/2024 Dyslipidemia 03/18/2024 S/P bone marrow [...] Encounters Date Type Department Care Team Description 09/06/2025 Results Follow-Up [address] [phone] Parag Duff MD LIPID PANEL, HEMOGLOBIN A1C, COMPREHENSIVE METABOLIC PANEL 09/06/2025 External Device Data [facility] ABSTRACTION Provider, Abstract 09/05/2025 9:00 AM CREDIT REVIEW ANALYST Office Visit [address] [phone] Parag Duff MD Medicare annual wellness visit, subsequent (Primary Dx); Prediabetes; Mixed hyperlipidemia; Primary hypertension; Post-nasal drip; Common wart 08/30/2025 External Device Data ST[facility] ABSTRACTION Provider, Abstract 08/10/2025 External Device Data [facility] ABSTRACTION Provider, Abstract 08/01/2025 1:00 PM CDT Procedure visit [place] [address] [facility] [address] [place] [phone] Christophe Lim DO Primary osteoarthritis of left hip (Primary Dx) 08/01/2025 11:50 AM CDT Ancillary Procedure [facility] [address] [facility] [address] [place] [phone] Christophe Lim, Primary osteoarthritis of left hip from Last 3 Months Immunizations Immunization Administration [...] Sex Assigned at Male 10/13/2024 3:20 PM CREDIT REVIEW ANALYST Legal Sex Male 9:51 AM CDT Gender Identity Male 10/13/2024 3:20 PM CREDIT REVIEW ANALYST Sexual Orientation Straight 10/13/2024 3: 20 PM CREDIT REVIEW ANALYST Last Filed Vital Signs Vital Sign Reading Time Taken Comments Blood Pressure 124/82 09/05/2025 8:52 AM CREDIT REVIEW ANALYST Pulse 70 09/05/2025 8:52 AM CREDIT REVIEW ANALYST Temperature 36.2 C (97.2 F) 09/05/2025 8:52 AM CREDIT REVIEW ANALYST Respiratory Rate 18 06/14/2025 11:52 AM CDT Oxygen Saturation 96% 09/05/2025 8:52 AM CREDIT REVIEW ANALYST Inhaled Oxygen Concentration - - Weight 88.5 kg (195 lb 3.2 oz) 09/05/2025 8:52 A M CREDIT REVIEW ANALYST Height 182.9 cm (6') 09/05/2025 8:52 AM CREDIT REVIEW ANALYST Body Mass Index 26.47 09/05/2025 8:52 AM CREDIT REVIEW ANALYST Plan of Treatment Upcoming Encounters Date Type Department Care Team (Late st Contact Info) Description 03/06/2026 9:20 AM CDT Office Visit [facility] [place] [address] [address] [place] [address] Harper Villalobos, [facility] [address] [facility] [address] [place] [address] Health Maintenance Due Date Last Done Comments [...] 12/30/2022 FIT/FOBT Q 1 year 12/31/2023 12/30/2022 INFLUENZA VACCINE (#1) 2025 2, 09/07/2021, 07/20/2021, Additional history exists Traditional Medicare (ACO) A nnual Wellness Visit 09/06/2026 09/05/2025, 03/18/2024, 02/03/2023 Pre-Diabetes and Diabetes Screening 09/05/2028 09/05/2025, 10/19/2024, 03/08/2024, Additional history exists COLORECTAL CANCER SCREENING (AUTO ORDER) 06/14/2031 06/14/2021 COLORECTAL SCREENING 06/14/2031 06/14/2021 Colorectal Cancer Screening (AUTO ORDER) 06/14/2031 Colorectal Cancer Screening 06/14/2031 DTAP/TDAP/TD VACCINES (4 - T d or Tdap) 03/27/2032 03/27/2022, 01/25/2022, 04/27/2021 Procedures Procedure Name Priority Date/Time Associated Diagnosis Comments COMPREHENSIVE METABOLIC PANEL Routine 09/05/2025 9:40 AM CREDIT REVIEW ANALYST Prediabetes HEMOGLOBIN A1C Routine 09/05/2025 9:40 AM CREDIT REVIEW ANALYST Prediabetes LIPID PANEL Routine 09/05/2025 9:40 AM CREDIT REVIEW ANALYST Mixed hyperlipidemia PA DESTRUCTION BENIGN LESIONS UP TO 14 Routine 09/05/2025 9:00 AM CREDIT REVIEW ANALYST Common wart US GUIDE NEEDLE PLACEMENT Routine 08/01/2025 3:41 PM CDT Primary osteoarthritis of left hip OCCULT BLOOD IMMUNOASSAY, COLORECTAL SCREEN Routine 12/30/2022 12:00 AM CDT Encounter for colorectal cancer screening from Last 3 Months or Most Recently Relevant to Health Maintenance Results * (ABNORMAL) HEMOGLOBIN A1C (09/05/2025 9:40 AM CREDIT REVIEW ANALYST) HEMOGLOBIN A1C 5.8(H) <5.7 % [facility] Comment: For someone without known diabetes, [...] diabetes for children. ESTIMATED AVERAGE GLUCOSE (MG/DL) 120 mg/dL [facility] ESTIMATED AVERAGE GLUCOSE (MMOL/L) 6.6 mmol/L [facility] Comment: Test Performed at: [facility] [id number] [address] Jatinder Cerda MD Blood 09/05/2025 9:40 AM CREDIT REVIEW ANALYST 09/06/2025 3:16 AM CREDIT REVIEW ANALYST us Parag Duff MD CHEMISTRY ORDERABLES Final Resul t [facility] [phone] [facility] [address] [facility] [place] [address] * (ABNORMAL) LIPID PANEL (09/05/2025 9:40 AM CREDIT REVIEW ANALYST) CHOLESTEROL 223(H) <200 mg/dL [facility] HDL 43 > OR = 40 mg/dL [facility] TRIGLYCERIDE 346(H) <150 mg/dL [facility] Comment: If a non-fasting specimen was collected, consider repeat triglyceride testing on a fasting specimen if clinically indicated. Patience et al. J. of Clin. Lipidol. 2015;9:129-169. LDL CALCULATED 131(H) mg/dL (calc) [facility] Comment: Reference range: <100 Desirable range <100 mg/dL for primary prevention; <70 mg/dL for patients with CHD or diabetic patients with > or = 2 CHD risk factors. LDL-C is now calculated using the Geoff-Waters calculation, which is a validated novel method providing better accuracy than the Friedewald equation in the estimation of LDL-C. Geoff SS et al. SOTERO. 2013;310(19): 6597-4974 (http://education.Hibernater.Polatis/faq/OMP727) CHOL/HDL RATIO 5.2(H) <5.0 (calc) [facility] NON-HDL CHOLESTEROL 180(H) <130 mg/dL (calc) [facility] Comment: For patients with diabetes plus 1 major ASCVD risk factor, treating to a non-HDL-C goal of <100 mg/dL (LDL-C of <70 mg/dL) is considered a therapeutic option. Test Performed at: [facility] [id number] [place] [address] Jatinder Cerda MD Blood 09/05/2025 9:40 AM CREDIT REVIEW ANALYST 09/06/2025 3:16 AM CREDIT REVIEW ANALYST us Parag Duff MD CHEMISTRY ORDERABLES Final Resul t [facility] [phone] [facility] [address] [address] [phone] * (ABNORMAL) COMPREHENSIVE METABOLIC PANEL (09/05/2025 9:40 AM CREDIT REVIEW ANALYST) GLUCOSE 102(H) 65 - 99 mg/dL [facility] Comment: Fasting reference interval For someone without known diabetes, a glucose value between 100 and 125 mg/dL is consistent with prediabetes and should be confirmed with a follow-up test. BUN 10 7 - 25 mg/dL [facility] CREATININE 1.10 0.70 - 1.30 mg/dL [facility] GFR 78 > OR = 60 mL/min/1. 73m2 [facility] BUN/CREAT RATIO SEE NOTE: 6 - 22 (calc) [facility] Comment: Not Reported: BUN and Creatinine are within reference range. SODIUM 139 135 - 146 mmol/L [facility] POTASSIUM 4.4 3.5 - 5.3 mmol/L [facility] CHLORIDE 104 98 - 110 mmol/L [facility] CO2 25 20 - 32 mmol/L [facility] CALCIUM 10.2 8.6 - 10.3 mg/dL [facility] TOTAL PROTEIN 6.9 6.1 - 8.1 g/dL [facility] ALBUMIN 4.6 3.6 - 5.1 g/dL [facility] GLOBULIN 2.3 1.9 - 3.7 g/dL (calc) [facility] ALBUMIN/GLOBULIN RATIO 2.0 1.0 - 2.5 (calc) [facility] BILIRUBIN TOTAL 0.5 0.2 - 1.2 mg/dL [facility] ALKALINE PHOSPHATASE 59 35 - 144 U/L [facility] AST 24 10 - 35 U/L [facility] ALT 28 9 - 46 U/L [facility] Comment: Test Performed at: [facility] [address] [address] [address] Jatinder Cerda MD Blood 09/05/2025 9:40 AM CREDIT REVIEW ANALYST 09/06/2025 3:16 AM CREDIT REVIEW ANALYST Parag Duff MD CHEMISTRY ORDERABLES Final Resul t Performing Organization Address [facility] Co de Phone Number [facility] [phone] [facility] [place] [address] [address] [phone] * Destruction of Lesion (09/05/2025 9:00 AM CREDIT REVIEW ANALYST) N[facility]ative [facility] 09/05/2025 9:00 AM CREDIT REVIEW ANALYST Parag Duff MD 09/05/2025 10:02 AM Destruction of Lesion Date/Time: 09/05/2025 9:00 AM Performed by: Parag Duff MD Authorized by: Parag Duff MD Comments: Procedure: Destruction of skin lesion Cryo cautery of medications reviewed in the clinic today. Stable. Continue current medication regimen as prescribed. Lesion(s) performed in standard fashion using liquid nitrogen. Three freeze-thaw cycles were performed without incident. Good freeze accomplished. Patient tolerated the procedure well. Expected course of healing and wound care reviewed with patient. us Parag Duff MD PROCEDURE/MINOR SURGICAL ORDERAB LES Final Result Performing Organization Address [facility] Co de Phone Number [facility] CLIA# [id number] [address] [place] [id number] * US GUIDE NEEDLE PLACEMENT (08/01/2025 3:41 PM CDT) Anatomical Region Laterality Modality Ultrasound Narrative 08/02/2025 12:15 PM CDT Procedure: Left hip injection Ultrasound Guidance: Yes. Ultrasound guidance was necessary to adequately identify the area of injection for appropriate needle placement. Time out performed for Ultrasound Guided Injection Verbal Consent received Yes Laterality Confirmed Yes Site Marked Yes Discussed risks associated with the procedure including bleeding, infection, and the patient agreed to move forward with the procedure. Landmarks reviewed, and the area prepped in sterile fashion with chlorhexidine pad x 3. Under ultrasound guidance, the hip joint was visualized and a 22-gauge 3-inch needle was inserted into the femoroacetabular joint. Next, 1cc of 1% lidocaine was injected, followed by kenalog 40 mg, followed by 4 cc of 1% lidocaine using the same needle. The needle was withdrawn, hemostasis maintained and a bandage applied. Post-injection instructions and warnings for infection or reaction reviewed with patient. Patient tolerated the procedure well without complications. us Christpohe Lim DO US ORDERABLES Final Res ult * OCCULT BLOOD IMMUNOASSAY, COLORECTAL SCREEN (12/30/2022 12:00 AM CDT) FECAL GLOBIN SEE NOTE [facility] Comment: FECAL GLOBIN BY IMMUNOCHEMISTRY Micro Number: [id number] Test Status: Final Specimen Source: Stool Specimen Quality: Adequate Fecal Globin: Not Detected Test Performed at: [facility] [id number] [place] [address] Jatinder Cerda MD Stool STOOL SPECIMEN / Unknown 12/30/2022 01/02/2023 1:55 PM CDT Aracelis Tavares JUNIOR FINANCIAL ANALYST BODY FLUIDS AND STOOLS Fin al Result [facility] [phone] [facility] [id number] [facility] [phone] from Last 3 Months or Most Recently Relevant to Health [place] [address] MEDICARE PART A AND B [facility] Care Teams Imaging Aide Relationship Specialty Start Date End Date Parag Duff MD [address] [place] [phone] PCP - General Family Practice 05/26/24
[2025-09-16 22:09] VITALS: BP 157/106; PULSE 86; O2SAT 96
--- NOTE | 2025-09-16 22:15 | CTR_ITS ---
PROCEDURE INFORMATION: Exam: CT Neck With Contrast Exam date and time: 09/16/2025 10:37 PM Age: 60 years old Clinical indication: Mass, lump, or swelling in neck; Other: Mandible pain; C/O pain with left submandibular swelling. History of dental abscess. ; Additional info: HX dental abscess submandib swelling TECHNIQUE: Imaging protocol: Computed tomography of the neck with contrast. Radiation optimization: All CT scans at this facility use at least one of these dose optimization techniques: automated exposure control; mA and/or kV adjustment per patient size (includes targeted exams where dose is matched to clinical indication); or iterative reconstruction. Contrast material: OMNI 350; Contrast volume: 100 ml; Contrast route: INTRAVENOUS (IV); COMPARISON: MR iac's wo/w con* [id number] 01/03/2022 12:02 PM RADIATION DOSE METRICS: Total DLP (mGy-cm): 170.89 FINDINGS: Brain: Visualized intracranial structures are normal. Salivary glands: There is asymmetric enhancement and enlargement of the left submandibular gland as compared to the right. There is no visible salivary duct calculus. Teeth: There is moderate dental decay. Pharynx: Normal fossa of Rosenmuller. Normal tonsillar pillars. Larynx: Normal epiglottis. Symmetric vocal folds. Thyroid: Homogeneous thyroid. Trachea: Visualized trachea is unremarkable. Lungs: Mild emphysema noted at the lung apices. Lymph nodes: Unremarkable. No lymphadenopathy. Vasculature: Mild calcific plaque noted at each carotid bifurcation. Bones/joints: No discrete periapical resorption or bony destructive change identified. Mild degenerative change noted in the cervical spine with adequate spinal canal. Soft tissues: No prevertebral soft tissue swelling. CT/CT neck w con* [id number] IMPRESSION: 1. Asymmetric enhancement of the left submandibular gland suggest sialadenitis. Remaining salivary glands are normal in appearance. 2. There is multifocal dental decay, but no current periapical resorption or bony destructive change identified.
[2025-09-16] MEDS: methylPREDNISolone sod succ 125 mg/2 mL INJ IVP (22:26)
[2025-09-16 22:30] VITALS: BP 142/101; PULSE 87; O2SAT 96
[2025-09-16 22:33] LABS: Hematocrit 44.9 % (37-53); Hemoglobin 15.20 g/dL (11.27-16.99); Mean Corpuscular HGB Conc 33.9 g/dL (30-55); Mean Corpuscular Hemoglobin 30.4 pg (27-33); Mean Corpuscular Volume 89.8 fl (82-101); Nucleated Red Blood Cells % 0 %; Platelet Count 348 10^3/cmm (157-399); Red Blood Count 5.00 10^6/uL (3.85-5.65); White Blood Count 11.42 10^3/uL (3.29-11.43)
[2025-09-16] MEDS: iohexol 350 mg/mL 500 mL Btl (per mL) IV (22:40)
[2025-09-16 22:56] LABS: Alanine Aminotransferase 23 U/L (0-41); Albumin Level 4.4 g/dL (3.5-5.2); Alkaline Phosphatase 70 U/L (40-130); Anion Gap 16.9 (5-19); Aspartate Amino Transferase 18 U/L (0-40); Blood Urea Nitrogen 8 mg/dL (6-20); Calcium 9.8 mg/dL (8.5-10.5); Carbon Dioxide 22 mmol/L (22-29); Chloride 101 mmol/L (98-107); Globulin 2.8 g/dL (1.3-4.6); Glucose 112 mg/dL (65-115); Osmolality Calculated 281 mOsm/kg (285-295); Potassium 3.9 mmol/L (3.5-5.1); Sodium 136 mmol/L (136-145); Total Protein 7.2 g/dL (6.6-8.7)
--- NOTE | 2025-09-16 23:29 | W.ED.DENTAL ---
HPI - Dental/Oral General: Chief complaint: Dental/Oral Stated complaint: abcess in gum, antibiotics not helping. High BP Time Seen by Provider: 09/16/25 21:40 History of Present Illness: Patient is a 60-year-old male presenting with facial swelling and pain. The swelling extends from his ear anteriorly to his face, with recent progression to additional areas. The patient reports that the swelling was minimal at noon when he went to work but had significantly worsened by 8 PM when he returned home. He describes pain in the affected area, including underneath the jaw. The patient reports experiencing a low-grade fever of 99.9?F that started either last night or today. He has been taking penicillin since September 14 (2 days ago), initially taking 2 doses on the first day and is prescribed to take 4 doses daily (at breakfast, lunch, dinner, and bedtime). His reports checking his blood pressure, which was elevated. Related Data Home Medications ?Medication ?Instructions ?Recorded ?Confirmed acyclovir 400 mg tablet 400 mg PO DAILY 05/16/20 07/31/23 calcium carbonate (Oyster Shell 500 mg PO DAILY 05/16/20 07/31/23 Calcium 500) cholecalciferol (vitamin D3) 50 50 mcg PO DAILY 05/16/20 07/31/23 mcg (2,000 unit) capsule magnesium 200 mg tablet 200 mg PO DAILY 05/16/20 07/31/23 mycophenolate mofetil 500 mg tablet 500 mg PO BID 05/16/20 07/31/23 famotidine 20 mg tablet 20 mg PO DAILY PRN Acid Reflux 05/18/20 07/31/23 hydrocodone-acetaminophen 1 tab PO Q4H PRN Pain 09/24/20 07/31/23 polyvinyl alcohol-povidone 09/24/20 07/31/23 cyclosporine 0.05 % eye drops in a 1 drp ophthalmic (eye) Q12H 09/11/22 07/31/23 dropperette gabapentin 300 mg capsule 300 mg PO BID 09/11/22 07/31/23 prednisolone 5 mg tablet 5 mg PO DAILY 09/11/22 07/31/23 risedronate 35 mg tablet mg PO 09/11/22 07/31/23 rosuvastatin 40 mg tablet 40 mg PO DAILY 09/11/22 07/31/23 ruxolitinib 10 mg tablet (Jakafi) 10 mg PO BID 09/11/22 07/31/23 Previous Rx's ?Medication ?Instructions ?Recorded albuterol sulfate 90 mcg/actuation 1 inh inhalation QID PRN shortness 05/23/20 aerosol inhaler (ProAir HFA) of breath or wheezing #18 grams clindamycin HCl 300 mg capsule 300 mg PO Q6H 10 days #40 caps 09/16/25 (Cleocin HCl) methylprednisolone 4 mg tablets in See Rx Instructions PO .COMPLEX 09/16/25 a dose pack (Medrol (King)) #21 ea Allergies Allergy/AdvReac Type Severity Reaction Status Date / Time methotrexate Allergy ALGY-Anaphy Verified 09/16/25 21:40 laxis lisinopril AdvReac Intermediate COUGH Verified 09/16/25 21:40 [facility] PFSH: Medical History Leukemia Fever Surgical History Bone marrow transplant status Social History Smoking and tobacco/nicotine status: current every day tobacco/nicotine user cigarettes Packs smoked per day: 0.5 Years cigarettes smoked: 35 Alcohol intake: current Alcohol intake frequency: holidays/special occasions only Substance/Drug Use: never Lives independently: Yes Household members: none Marital status: Current occupational status: disabled Do you think of yourself as: Straight/Heterosexual Current gender identity: Male Physical Exam Const: COMMON NORMALS: no acute distress GENERAL APPEARANCE: cooperative; not ill appearing and not frail appearing HENMT: COMMON NORMALS: normocephalic, atraumatic and Normal external nose present HEAD & SCALP: normocephalic and atraumatic FACE & SINUS: edema on the left submandibular NOSE: Normal external nose present Eye: COMMON NORMALS: Equal, round and reactive pupils present and EOMs intact bilaterally PUPIL: Yes Equal, round and reactive pupils present Neck/C-Spine: GENERAL: Yes trachea midline Chest: CHEST: Yes Symmetrical chest wall rise Resp: COMMON NORMALS: normal respiratory effort, No retractions, No use of accessory muscles and clear to auscultation bilaterally AUSCULTATION: clear to auscultation bilaterally Cardio: COMMON NORMALS: regular rate and regular rhythm RATE: regular rate RHYTHM: regular rhythm GI: COMMON NORMALS: Normal to inspection, nondistended, normoactive bowel sounds present Extremity: COMMON NORMALS: no pedal edema Neuro: CHRISTEL COMA SCALE: document GCS findings Christel coma scale eye opening: Spontaneous [place] coma scale verbal response: Orientated Christel coma scale motor response: Obey commands Christel coma scale total score: 15 SENSORY EXAM: Yes extremities (intact) Psych: COMMON NORMALS: speech normal SPEECH: Yes normal speech Skin: COMMON NORMALS: no rashes or lesions noted GENERAL SKIN EXAM: no rashes or lesions noted Course Vital Signs: Vital signs: Vital Signs Temperature 98.1 F 09/16/25 21:37 Pulse Rate 72 09/17/25 00:05 Respiratory Rate 16 09/17/25 00:05 Blood Pressure 132/92 09/17/25 00:05 Pulse Oximetry 95 09/17/25 00:05 Oxygen Delivery Me thod Room Air 09/16/25 22:30 MDM - Dental/Oral Medical Decision Making CBC is normal. BMP is normal. CRP is 43 sed rate is 28. Imaging reveals asymmetric enhancement of the left submandibular gland suggesting sialoadenitis. remaining salivary glands are normal. There is no periapical abscess dental tsang. No evidence of Miah's angina He has received Solu-Medrol here as well as 900 mg clindamycin. In the absence of any submandibular space compromise, he will be discharged home. Tapering dose of steroid, continue clindamycin. Lemon drops may help to some degree. ENT follow-up. He will call for an appointment on Friday. He will return for any worsening symptoms despite the above. Lab Data 09/16/25 22:21 09/16/25 22:[address] 09/16/25 22:15 IMPRESSION: 1. Asymmetric enhancement of the left submandibular gland suggest sialadenitis. Remaining salivary glands are normal in appearance. 2. There is multifocal dental decay, but no current periapical resorption or bony destructive change identified. Laboratory Results WBC 11.42 10^3/uL (3.29-11.43) 09/16/25 22:21 RBC 5.00 10^6/uL (3.85-5.65) 09/16/25 22:21 Hgb 15.20 g/dL (11.27-16.99) 09/16/25 22:21 Hct 44.9 % (37-53) 09/16/25 22:21 MCV 89.8 fl (82-101) 09/16/25 22:21 MCH 30.4 pg (27-33) 09/16/25 22:21 MCHC 33.9 g/dL (30-55) 09/16/25 22:21 RDW 14.0 % (12.1-15.1) 09/16/25 22:21 Plt Count 348 10^3/cmm (157-399) 09/16/25 22:21 MPV 9.2 fL (7.4-10.4) 09/16/25 22:21 Neut % (Auto) 66.3 % 09/16/25 22:21 Lymph % (Auto) 17.9 % 09/16/25 22:21 Bryan % (Auto) 14.5 % 09/16/25 22:21 Eos % (Auto) 0.6 % 09/16/25 22:21 Baso % (Auto) 0.2 % 09/16/25 22:21 Neut # (Auto) 7.57 10^3/uL (1.8-7.7) 09/16/25 22:21 Lymph # (Auto) 2.0 10^3/uL (0.8-4.8) 09/16/25 22:21 Bryan # (Auto) 1.7 10^3/uL (0.2-0.9) H 09/16/25 22:21 Eos # (Auto) 0.1 10^3/uL (0.0-0.8) 09/16/25 22:21 Baso # (Auto) 0.0 10^3/uL (0.0-0.1) 09/16/25 22:21 Nucleated RBC % (auto) 0 % 09/16/25 22:21 Nucleated RBCs # 0.0 /100WBC 09/16/25 22:21 ESR 28 mm/hr (0-10) H 09/16/25 22:21 Sodium 136 mmol/L (136-145) 09/16/25 22:21 Potassium 3.9 mmol/L (3.5-5.1) 09/16/25 22:21 Chloride 101 mmol/L (98-107) 09/16/25 22:21 Carbon Dioxide 22 mmol/L (22-29) 09/16/25 22:21 Anion Gap 16.9 (5-19) 09/16/25 22:21 BUN 8 mg/dL (6-20) 09/16/25 22:21 Creatinine 0.9 mg/dL (0.7-1.2) 09/16/25 22:21 GFR Calculation 86.7 mL/min (90-130) L 09/16/25 22:21 Glucose 112 mg/dL (65-115) 09/16/25 22:21 Calculated Osmolality 281 mOsm/kg (285-295) L 09/16/25 22:21 Calcium 9.8 mg/dL (8.5-10.5) 09/16/25 22:21 Total Bilirubin 0.7 mg/dL (0.15-1.2) 09/16/25 22:21 AST 18 U/L (0-40) 09/16/25 22:21 ALT 23 U/L (0-41) 09/16/25 22:21 Alkaline Phosphatase 70 U/L (40-130) 09/16/25 22:21 C-Reactive Protein 43.7 mg/L (0.0-4.9) H 09/16/25 22:21 Total Protein 7.2 g/dL (6.6-8.7) 09/16/25 22:21 Albumin 4.4 g/dL (3.5-5.2) 09/16/25 22:21 Globulin 2.8 g/dL (1.3-4.6) 09/16/25 22:21 All radiology interpretation(s) finalized by discharge Discharge Plan Discharge Patient Disposition: Home Clinical Impression: Acute bacterial sialadenitis Condition: Stable Prescriptions: New clindamycin HCl [Cleocin HCl] 300 mg capsule 300 mg PO Q6H 10 Days Qty: 40 0RF methylprednisolone [Medrol (King)] 4 mg tablets,dose pack See Rx Instructions PO .COMPLEX Qty: 21 0RF Rx Instructions: orally per package directions No Action mycophenolate mofetil 500 mg tablet 500 mg PO BID cholecalciferol (vitamin D3) 50 mcg (2,000 unit) capsule 50 mcg PO DAILY calcium carbonate [Oyster Shell Calcium 500] 500 mg calcium (1,250 mg) tablet 500 mg PO DAILY magnesium 200 mg tablet 200 mg PO DAILY acyclovir 400 mg tablet 400 mg PO DAILY famotidine 20 mg tablet 20 mg PO DAILY PRN (Reason: Acid Reflux) gabapentin 300 mg capsule 300 mg PO BID risedronate 35 mg tablet PO prednisolone 5 mg tablet 5 mg PO DAILY Jakafi 10 mg tablet 10 mg PO BID rosuvastatin 40 mg tablet 40 mg PO DAILY cyclosporine 0.05 % dropperette 1 drp ophthalmic (eye) Q12H albuterol sulfate [ProAir HFA] 90 mcg/actuation HFA aerosol inhaler 1 inh INHALATION QID PRN (Reason: shortness of breath or wheezing) Qty: 18 3RF hydrocodone-acetaminophen 5 mg tablet 1 tab PO Q4H PRN (Reason: Pain) Rx Instructions: 5-325mg polyvinyl alcohol-povidone Discharge Orders: Discharge ED (Routine); Ordered 09/16/25 Ordered By: Braden Salter Referrals: Gage Figueroa DO [Primary Care Provider, Family Practice] Isma Abarca MD [Physician, Ear, Nose, Throat] - 1-3 days Patient Instructions: Sialoadenitis (ED), Opioid Safety, Pain Management, Patient Portal & Ishan Instructions Activity Restrictions/Additional Instructions: Stop your penicillin. Use the prescribed antibiotic instead. Steroids will help with swelling and pain as well. You may take anti-inflammatories for pain as well as your oxycodone. Return for problems. Call the ENT clinic on Friday morning for follow-up appointment. Further treatment may be needed Print Language: Chadian Coding Level of Care Code ED Government Service Executive for Asif Velasquez
[2025-09-16] MEDS: morphine 4 mg/mL SDV 1 mL IVP (23:44)
[2025-09-16] MEDS: ondansetron 2 mg/ML SDV 2 mL 4 MG IVP (23:44)
[2025-09-16 23:47] VITALS: BP 135/96; PULSE 86; RESP 16; O2SAT 94
[2025-09-17 00:05] VITALS: BP 132/92; PULSE 72; RESP 16; O2SAT 95
== END 2025-09-17 00:03 | disposition home or self-care (01) ==
PROVIDERS: Emergency Provider Emergency Medicine; PCP Family Medicine
DX: K11.21 Acute sialoadenitis (principal); F17.210 Nicotine dependence, cigarettes, uncomplicated
CPT/HCPCS: 36415; 70491; 80053; 85025; 85651; 86140; 87040; 96365; 96375; 99285; J1885; J2270; J2405; J2919; J3490